=== PATIENT | male | born 1940 | race Caucasian/White ===

== ENCOUNTER 2016-11-25 15:05 | Inpatient (IN) | payer OTHER, MEDICARE ==
[~2016-11-25] VITALS: Ht 177.8 cm; Wt 79.4 kg
--- NOTE | 2016-11-25 15:09 | ED NEURO DEFICIT/STROKE ---
History of Present Illness General Chief Complaint: General Adult Stated Complaint: SENT BY [facility] FOR EVAL S/P HEAD CT SCAN Source: patient, family Exam Limitations: no limitations Vital Signs & Intake/Output Vital Signs & Intake/Output Vital Signs Date Time Temp Pulse Resp B/P B/P Pulse O2 O2 Flow FiO2 Mean Ox Delivery Rate 11/25 2105 98.7 65 18 140/64 96 Room Air 11/25 1841 98.0 78 18 146/80 97 Room Air 11/25 1733 97.1 64 18 150/78 100 11/25 1513 63 15 154/72 100 Room Air Room Air Allergies Coded Allergies: Penicillins (UNKNOWN 11/25/16) Reconcile Medications Amiodarone HCl 200 MG TABLET 1 TAB PO DAILY HEART (Reported) Aspirin (Ecotrin*) 81 MG TABLET.DR 1 TAB PO DAILY HEART/BLOOD (Reported) Carvedilol 6.25 MG TABLET 1 TAB PO BID HEART/BP (Reported) Doxycycline Hyclate 100 MG TABLET 1 TAB PO BID ANTIBIOTIC (Reported) Duloxetine HCl 60 MG CAPSULE.DR 1 CAP PO DAILY NERVE PAIN (Reported) Dutasteride (Avodart) 0.5 MG CAPSULE 1 CAP PO DAILY (Reported) Fluticasone Propionate 50 MCG/ACTUATION SPRAY.SUSP 2 SPRAY NASB DAILY ALLERGIES (Reported) Lisinopril 5 MG TABLET 1 TAB PO DAILY BP (Reported) Multivitamin (Multi-Day Vitamins) 1 EACH TABLET 1 TAB PO DAILY SUPPLEMENT ( Reported) Omeprazole 20 MG CAPSULE.DR 1 CAP PO DAILY GI (Reported) Pravastatin Sodium 40 MG TABLET 1 TAB PO QPM CHOLESTEROL (Reported) Triage Nurses Notes Reviewed? yes Onset: Gradual Duration: week(s): (2) Timing: recent history Severity: mild, moderate Vision Problem? No Impaired Ability: difficult to walk Associated Symptoms: HEADACHES HPI: This is a very tavares 68-year-old gentleman with history of hypertension, high cholesterol who presents to the ER with his after being sent from [facility]. According to the on October 30 he was bit by a tick in his left arm. He was seen at an urgent care where they removed the tick. Since that time she states it is all gone "downhill". Patient has felt dizzy, he has had frontal headaches. He has felt off balance and is walked into a few lopez. Patient is followed but denies any significant head injury.. He is on a daily 81 mg aspirin however. Past History Travel History Traveled to [place] past 21 day No Medical History Any Pertinent Medical History? see below for history Cardiovascular: hypertension, hyperlipidemia, DYSRHYTHMIA Surgical History Surgical History: non-contributory Psychosocial History Tobacco Use: Quit >30 days ago ETOH Use: DAILY 2-3 GLASSES WINE Family History Hx Contributory? No Review of Systems Review of Systems Constitutional: Denies: chills, fever. EENTM: Reports: no symptoms. Respiratory: Denies: cough, short of breath. Cardiovascular: Denies: chest pain, palpitations, peripheral edema, syncope. GI: Denies: abdominal pain, nausea, vomiting. Genitourinary: Reports: no symptoms. Musculoskeletal: Denies: back pain. Skin: Reports: no symptoms. Neurological/Psychological: Reports: ataxia, headache. Denies: anxiety, numbness, tingling, weakness. Hematologic/Endocrine: Denies: bruising, bleeding, polyuria, polydipsia. Immunologic/Allergic: Denies: splenectomy. All Other Systems: Reviewed and Negative Physical Exam Physical Exam General Appearance: well developed/nourished, alert, awake Head: atraumatic, normal appearance Eyes: Bilateral: normal appearance, PERRL, EOMI. Ears, Nose, Throat: normal ENT inspection, moist mucous membrane, hearing grossly normal Neck: normal inspection, supple, full range of motion Respiratory: normal breath sounds, chest non-tender, no respiratory distress Cardiovascular: regular rate/rhythm Peripheral Pulses: 2+ radial (R), 2+ radial (L) Gastrointestinal: normal bowel sounds, soft, non-tender Extremities: evidence of injury Psychiatric: awake, alert, oriented x 3 Cranial Nerves: normal hearing, normal speech, PERRL Coordination/Gait: normal finger to nose Core Measures CVA/TIA Diagnosis: Yes NIH Stroke Scale: Total 1 Date Last Known Well: 10/30/16 Neurological S/S of CVA: Dizziness Severe Sepsis Present: No Septic Shock Present: No Bedside Dysphagia Screen Bedside Swallow Eval Done: Yes Result of Evaluation: Pass Progress Differential Diagnosis: intracranial Hem., intracranial mass/tumor, stroke, PAF Plan of Care: Orders Procedure Date/time Status Nothing by Mouth 11/26 B Active TROPONIN LEVEL 11/26 0600 Active EKG 11/26 0600 Active Nothing by Mouth 11/25 D Complete TROPONIN LEVEL 11/25 2200 Active EKG 11/25 2200 Active Vital Signs 11/25 2105 Complete Teach/Educate 11/25 2104 Active Pain Treatment and Response 11/25 2104 Active Nutritional Intake, Monitor 11/25 2104 Active Isolation 11/25 2104 Active Intake & Output 11/25 210 Active Patient Care Conference 11/25 2104 Active Activity/Ambulation 11/25 210 Active Misc Message 11/25 195 Active ED Holding Orders 11/25 1959 Active SWALLOW EVALUATION 11/25 1835 Active MISTAKE 11/25 1835 Active GLYCOSYLATED HGB 11/25 1835 Active CBC WITHOUT DIFFERENTIAL 11/25 1835 Active BASIC ELECTROLYTES PLUS BUN&CR 11/25 1835 Active ECHOCARDIOGRAM 11/25 1835 Active LACTIC ACID 11/25 1810 Active Pathway - chart 11/25 1722 Active House Staff 11/25 1722 Active ED Holding Orders 11/25 1722 Active Admit to inpatient 11/25 1722 Active Patient Data 11/25 1722 Active Vital Signs 11/25 1722 Active Code Status 11/25 1722 Complete Code Status 11/25 1722 Active [id number] DOPPLER 11/25 1704 Active THYROID STIMULATING HORMONE 11/25 1530 Complete FOLIC ACID 11/25 1530 Complete VITAMIN B12 11/25 1530 Complete Add-on Test (ER Only) 11/25 1522 Active LYME TITRE 11/25 1522 Active TROPONIN LEVEL 11/25 1510 Complete PARTIAL THROMBOPLASTIN TIME 11/25 1510 Complete PROTHROMBIN TIME 11/25 1510 Complete LACTIC ACID 11/25 1510 Complete COMPREHENSIVE METABOLIC PANEL 11/25 1510 Complete CBC WITHOUT DIFFERENTIAL 11/25 1510 Complete EKG 11/25 1510 Active TYPE & SCREEN (NOT X-MATCH) 11/25 1510 Complete Lab Add-on Test 11/25 UNK Active VTE Mechanical Prophylaxis 11/25 UNK Active Telemetry/Client Technical Support Associate 11/25 UNK Active NIH Stroke Scale 11/25 UNK Active Current Medications Sig/Guzman Start time Last Medication Dose Stop Time Status Admin Atorvastatin Calcium 40 MG 1700 11/26 1700 AC (Lipitor) Pravastatin Sodium 40 MG 1700 11/26 1700 CAN (Pravachol) Amiodarone HCl 200 MG DAILY 11/26 1000 AC (Cordarone) Aspirin Buffered 81 MG DAILY 11/26 1000 AC (Ecotrin) Duloxetine HCl 60 MG DAILY 06/13 1000 AC (Cymbalta) Enoxaparin Sodium 40 MG DAILY 11/26 1000 AC (Lovenox) Omeprazole 20 MG DAILY 11/26 1000 AC (Prilosec) Tamsulosin HCl 0.4 MG DAILY 11/26 1000 AC (Flomax) Carvedilol 6.25 MG BID 11/25 2200 AC (Coreg) Doxycycline Hyclate 100 MG BID 11/25 2200 AC (Vibramycin) Laboratory Tests 11/25/16 1530: Anion Gap 9, Estimated GFR > 60, BUN/Creatinine Ratio 17.8, Glucose 80, Lactic Acid 1.7, Calcium 9.7, Total Bilirubin 1.0, AST 23, ALT 44, Alkaline Phosphatase 48, Troponin I < 0.01, Total Protein 7.0, Albumin 3.9, Globulin 3.1, Albumin/ Globulin Ratio 1.3, Vitamin B12 560, Folate 17.4, TSH 1.660, PT 12.0, INR 1.14, APTT 30, CBC w Diff NO MAN DIFF REQ, RBC 4.76, MCV 95.1 H, MCH 32.0 H, RDW 13.3, MPV 9.3, Gran % 57.6, Lymphocytes % 31.5, Monocytes % 8.5, Eosinophils % 1.4, Basophils % 1.0, Absolute Granulocytes 3.9, Absolute Lymphocytes 2.2, Absolute Monocytes 0.6, Absolute Eosinophils 0.1, Absolute Basophils 0.1, PUBS MCHC 33.6, Lyme Disease Antibody Pending Diagnostic Imaging: Viewed by Me: Radiology Read, CT Scan. Discussed w/RAD: Radiology Read, CT Scan. Radiology Impression: PATIENT: NAMAN MUÑOZ PRESENT AGE: 76 PATIENT ACCOUNT NO: [id number] : 38 LOCATION: [facility] ORDERING PHYSICIAN: BAL ISAACS MD SERVICE DATE: 11/25/16 EXAM TYPE: CAT - CT HEAD WO IV CONTRAST EXAMINATION: CT HEAD WITHOUT CONTRAST CLINICAL INFORMATION: Disorientation COMPARISON: None TECHNIQUE: Contiguous axial imaging was performed from the skull base to vertex without intravenous administration of contrast. DLP: 636 mGy-cm FINDINGS: There is loss of the brooks- white differentiation in the left occipital/posterior temporal lobe with regional sulcal effacement as well as high density in a gyriform configuration. There is mild mass effect on the atrium and occipital horn of the left lateral ventricle. Otherwise there is moderate generalized prominence of the ventricles, sulci, and extra-axial CSF spaces. Minor hypoattenuation in the periventricular regions. No shift of the normally midline structures. No additional site of evolving territorial infarct. No acute osseous abnormalities. The paranasal sinuses, upper nasal cavity and upper nasopharynx are clear. The mastoid air cells and middle ear cavities are clear. There is moderate degenerative change of the temporomandibular joints. No acute soft tissue abnormalities. There have been bilateral ocular lens extractions. The patient is edentulous. Upper cervical spondylosis is visualized with the suggestion of a compression deformity involving C3, age indeterminate. 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 Gyriform high density in this region is compatible with petechial hemorrhage. Mild regional mass effect. Background of moderate generalized volume loss and mild chronic microangiopathy. This critical result was communicated with Dr. Isaacs at 2:40PM on 11/25/2016 and the content and urgency was understood at the time of direct communication. The plan is for the patient to be taken by his to the emergency department. DICTATED BY: MELISSA JOHNSON MD DATE/TIME DICTATED:11/25/161428 IRONER:SAMEERA DATE/TIME TRANSCRIBED:11/25/161428 CONFIDENTIAL, DO NOT COPY WITHOUT APPROPRIATE AUTHORIZATION. <Electronically signed in Other Vendor System> SIGNED BY: MELISSA JOHNSON MD 11/25/16 1441 CXR Impression: PATIENT: NAMAN MUÑOZ PRESENT AGE: 76 PATIENT ACCOUNT NO: [id number] : 38 LOCATION: [facility] ORDERING PHYSICIAN: BAL ISAACS MD SERVICE DATE: 11/25/166166 EXAM TYPE: RAD - XRY-CHEST XRAY, PA AND LATERAL EXAMINATION: XR CHEST CLINICAL INFORMATION: Cough and shortness of breath COMPARISON: Chest CT from 08/06/2013 TECHNIQUE: 2 views of the chest were obtained. FINDINGS: The cardiomediastinal silhouette is unchanged with mild unfolding of the thoracic aorta. The lungs appear clear and slightly hyperinflated. The small pulmonary nodules and calcified granulomata seen on the prior chest CT are not resolved radiographically. No consolidation, pulmonary edema, pleural effusion, or pneumothorax. There is mild multilevel degenerative change of the spine without evidence of acute osseous abnormality. IMPRESSION: No acute abnormality. DICTATED BY: MELISSA JOHNSON MD DATE/TIME DICTATED:11/25/161448 IRONER:SAMEERA DATE/TIME TRANSCRIBED:1448 CONFIDENTIAL, DO NOT COPY WITHOUT APPROPRIATE AUTHORIZATION. < Electronically signed in Other Vendor System> SIGNED BY: MELISSA JOHNSON MD 11/25/16 1454 Initial ED EKG: NSR Comments: PATIENT: NAMAN MUÑOZ PRESENT AGE: 76 PATIENT ACCOUNT NO: [id number] : 38 LOCATION: 1NO ORDERING PHYSICIAN: DEBORA PETTY MD SERVICE DATE: 11/25/16 EXAM TYPE: MRI - MRA-HEAD EXAMINATION: MRA [place] OF [place] CLINICAL INFORMATION: CVA COMPARISON: CT head 11/25/2016. MRI of head 11/25/2016. TECHNIQUE: A 1.5 Fabiola magnet used. 3-D [id number] multi-slab imaging obtained through the head. Post processing 3-D MIP images provided from scanner with postprocessing by the solid waste technician. No IV contrast used. FINDINGS: There is patent vascular flow in the right and left internal carotid arteries. There is irregularity of the carotid vessels at the carotid siphon consistent with the atherosclerotic vascular wall calcifications seen on CT head 11/25/2016. There is vascular flow seen in the right and left internal carotid arteries with normal vascular flow in the anterior and middle cerebral artery distribution. Vertebral arteries and basilar artery appears normal. Normal vascular flow seen in the posterior cerebral arteries. No occlusion or aneurysms. IMPRESSION: No occlusion or aneurysm of [place] of [place]. There is atherosclerotic changes of the internal carotid arteries at the carotid artery siphon bilaterally. DICTATED BY: JUN DENISE MD DATE/TIME DICTATED:11/25/162025 IRONER:SAMEERA DATE/TIME TRANSCRIBED:11/25/162025 CONFIDENTIAL, DO NOT COPY WITHOUT APPROPRIATE AUTHORIZATION. <Electronically signed in Other Vendor System> SIGNED BY: JUN DENISE MD 11/25/162047 PATIENT: NAMAN MUÑOZ PRESENT AGE: 76 PATIENT ACCOUNT NO: [id number] : 38 LOCATION: 1NO ORDERING PHYSICIAN: JUNG WALLER MD SERVICE DATE: 11/25/16 EXAM TYPE: MRI - MRI-HEAD W & W/O GABRIELA EXAMINATION: MR BRAIN WITHOUT AND WITH CONTRAST CLINICAL INFORMATION: Findings of left SOFTWARE TECHNICAL LEAD territory infarct on CAT scan today. Disorientation. COMPARISON: CT head today. TECHNIQUE: MRI of the brain was obtained using routine sequences before and after the intravenous administration of 20 mL of OptiMARK. FINDINGS: In the area of the left SOFTWARE TECHNICAL LEAD, left medial occipital parietal lobe, there is evidence for an acute infarct. There is edema. There is restricted diffusion. Cortical brooks matter has enhancement postcontrast. There is susceptibility changes on gradient recall imaging and this area consistent with small petechial hemorrhage. These findings correlate to the abnormal findings seen on CT of head today. There is background atrophy with prominence of the ventricles and sulci and periventricular white matter chronic small vessel ischemic changes. The paranasal sinuses are well aerated. IMPRESSION: Left SOFTWARE TECHNICAL LEAD territory infarct with evidence of hemorrhage. DICTATED BY: JUN DENISE MD DATE/TIME DICTATED:11/25/162017 IRONER:SAMEERA DATE/TIME TRANSCRIBED:11/25/162017 CONFIDENTIAL, DO NOT COPY WITHOUT APPROPRIATE AUTHORIZATION. <Electronically signed in Other Vendor System> SIGNED BY: JUN DENISE MD 11/25/162102 Departure Departure Time of Disposition: 1650 Disposition: STILL A PATIENT Condition: Stable Clinical Impression Primary Impression: CVA (cerebral vascular accident) Referrals: BAL ISAACS MD (PCP/Family) Departure Forms: Customer Survey General Discharge Information Admission Note Spoke With: BHARAT MUNGUIA MD Documentation of Exam: Documentation of any treatments & extenuating circumstances including Concerns Regarding Discharge (functional status, medication knowledge or non-compliance, living conditions, etc.) that warrant an admission rather than observation: [ TELE MONITOR, MRI HEAD, CAROTID ULTRASOUND, CARDIOLOGY EVALUATION AND RECORDS, CONSIDER ANTICOAGULATION]
--- NOTE | 2016-11-25 15:13 | NUR ---
PT SENT TO ED BY DR. ISAACS FOR HEAD CT RESULTS. PT SEEN AT [facility] TODAY FOR CHEST XRAY AND HEAD CT FOR ?STROKE FOR S/S OF WALKING SIDEWAYS, HEADACHE, FREQUENT FALLS, WEAKNESS. PT RECENTLY BIT BY A TICK WHICH IS WHAT AND PT HAVE BEEN RELATED SYMPTOMS TO. VSS ON ARRIVAL.
--- NOTE | 2016-11-25 15:13 | NUR ---
DR. PETTY AT BEDSIDE.
[2016-11-25] MEDS ORDERED: MULTI-DAY VITA1 EACH PO (15:26)
[2016-11-25] MEDS ORDERED: ASPIRIN EC81 M1 PO (15:26)
[2016-11-25] MEDS ORDERED: CARVEDILOL6.25 M1 PO (15:26)
[2016-11-25] MEDS ORDERED: OMEPRAZOLE20 M2 PO (15:26)
[2016-11-25] MEDS ORDERED: LISINOPRIL5 M1 PO (15:26)
[2016-11-25] MEDS ORDERED: PRAVASTATIN SOD40 M2 PO (15:27)
[2016-11-25] MEDS ORDERED: AMIODARONE HCL200 M1 PO (15:27)
[2016-11-25] MEDS ORDERED: DULOXETINE HCL30 MG PO (15:27)
[2016-11-25] MEDS ORDERED: AVODART0.5 M1 PO (15:27)
[2016-11-25] MEDS ORDERED: FLUTICASONE PRO16 GM NASB (15:29)
[2016-11-25] MEDS ORDERED: DOXYCYCLINE HY100 M4 PO (15:29)
[2016-11-25] MEDS ORDERED: DULOXETINE HCL60 MG PO (15:30)
--- NOTE | 2016-11-25 15:44 | NUR ---
IV MED LOCK EST RIGHT F/A 20 BLOOD WORK SENT EKG DONE
[2016-11-25 15:55] LABS: ABSOLUTE BASOPHIL COUNT 0.1 /CUMM (0.0-0.2); ABSOLUTE EOSINOPHIL COUNT 0.1 /CUMM (0.0-0.7); ABSOLUTE GRANULOCYTE CT 3.9 /CUMM (1.4-6.5); ABSOLUTE LYMPH COUNT 2.2 /CUMM (1.2-3.4); ABSOLUTE MONOCYTE COUNT 0.6 /CUMM (0.10-0.60); EOSINOPHIL % 1.4 % (0-5); GRANULOCYTE % 57.6 % (42.2-75.2); HEMATOCRIT 45.3 % (42-52); MEAN CORPUSCULAR HGB CONC 33.6 G/DL (33.0-37.0); MEAN CORPUSCULAR VOLUME 95.1 FL (80.0-94.0); MEAN PLATELET VOLUME 9.3 FL (7.4-10.4); PLATELET COUNT 165 /CUMM (130-400); RBC DISTRIBUTION WIDTH 13.3 % (11.5-14.5); RED BLOOD CELL CT 4.76 /CUMM (4.70-6.10); WHITE BLOOD CELL COUNT 6.8 /CUMM (4.8-10.8)
[2016-11-25 16:16] LABS: PTT 30 SEC (25-37)
--- NOTE | 2016-11-25 17:21 | History & Physical ---
TORY OBREGON,MALCOLM 11/25/16 0100: General Information and HPI MD Statement: I have seen and personally examined NAMAN MUÑOZ and documented this H&P. The patient is a 76 year old M who presented with a patient stated chief complaint of []. Source of Information: family Exam Limitations: no limitations History of Present Illness: Patient is a 68-year-old male with significant Past medical history of hypertension, hyperlipidemia, cardiomyopathy, presented with history of confusion since last 1 year, history of tick bite on the October 30, history of recurrent fall after that. Most of the history is taken from the .According to the , he is confused since last 1 year and following You Isaacs MD for its workup. He had history of tick bite, he went to urgent care where the tick was removed.Later he started having fever, chills, cold sweats, headaches. He was unsteady on her feet and had fall in the bathroom on November 01. For which he went to see Dr. Isaacs and he was given a tablet doxycycline for it. After that, he had again fall on November 08. He started taking his doxycycline around . After that, and now he is not feeling chills, night sweats. He is complaining of a headache, especially on the left side of the head, and today he was unable to find handle of car to open the door. 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 Denies for any history of arthritis, rashes, trauma, possible history of Lyme. Discussed with Dr. Martinez. He told that the patient had history of nonsustained VT, along with cardiomyopathy. He has very poor ejection fraction and advised for defibrillator, but he refuses for it. Personal history -he retired 27 years ago, he quit smoking 6 years ago, he was using an half pack per day for around 50 years, he uses alcohol socially. Allergies/Medications Allergies: Coded Allergies: Penicillins (UNKNOWN 11/25/16) Home Med list Amiodarone HCl 200 MG TABLET 1 TAB PO DAILY HEART (Reported) Aspirin (Ecotrin*) 81 MG TABLET. 1 TAB PO DAILY HEART/BLOOD (Reported) Carvedilol 6.25 MG TABLET 1 TAB PO BID HEART/BP (Reported) Doxycycline Hyclate 100 MG TABLET 1 TAB PO BID ANTIBIOTIC (Reported) Duloxetine HCl 60 MG CAPSULE.DR 1 CAP PO DAILY NERVE PAIN (Reported) Dutasteride (Avodart) 0.5 MG CAPSULE 1 CAP PO DAILY (Reported) Fluticasone Propionate 50 MCG/ACTUATION SPRAY.SUSP 2 SPRAY NASB DAILY ALLERGIES (Reported) Lisinopril 5 MG TABLET 1 TAB PO DAILY BP (Reported) Multivitamin (Multi-Day Vitamins) 1 EACH TABLET 1 TAB PO DAILY SUPPLEMENT ( Reported) Omeprazole 20 MG CAPSULE.DR 1 CAP PO DAILY GI (Reported) Pravastatin Sodium 40 MG TABLET 1 TAB PO QPM CHOLESTEROL (Reported) Past History Travel History Traveled to [place] past 21 day No Medical History EENT: [facility] Cardiovascular: hypertension, hyperlipidemia, DYSRHYTHMIA Past Family/Social History Psychosocial History ETOH Use: DAILY 2-3 GLASSES WINE Review of Systems Review of Systems Constitutional: Reports: no symptoms, weakness. Cardiovascular: Reports: chest pain, palpitations. Respiratory: Reports: cough, short of breath. Genitourinary: Reports: dysuria. Neurological/Psychological: Reports: cognitive dysfunction, confusion, weakness. Exam & Diagnostic Data Last 24 Hrs of Vital Signs/I&O Vital Signs Date Time Temp Pulse Resp B/P B/P Pulse O2 O2 Flow FiO2 Mean Ox Delivery Rate 11/25 1841 98.0 78 18 146/80 97 Room Air 11/25 1733 97.1 64 18 150/78 100 / 1513 63 15 154/72 100 Room Air Room Air Intake & Output 11/25 1600 /12 0800 11/25 0000 Intake Total Output Total Balance Patient 79.832 kg Weight Weight Reported by Patient Measurement Method Physical Exam General Appearance Alert, Oriented X3, Cooperative Skin No Rashes Cardiovascular Normal S1, Normal S2 Lungs Clear to Auscultation, Normal Air Movement Neurological Normal Speech, Strength at 5/5 X4 Ext, Normal Tone, Sensation Intact, Cranial Nerves 3-12 NL, Reflexes 2+, he sways on left side, field of vision is normal Extremities No Clubbing, No Cyanosis, No Edema Vascular Normal Pulses, Pulses Symmetrical Assessment/Plan Assessment: Patient is a 68-year-old male with significant Past medical history of hypertension, hyperlipidemia, cardiomyopathy, presented with history of confusion since last 1 year, history of tick bite on the October 30, history of recurrent fall after that. 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 We'll follow the recommendation * We will follow MRI of the brain, carotid Doppler, echocardiogram * Will start patient on high-dose statin, aspirin, continue lisinopril * Strict intake output charting * PT/OT consult Cardiomyopathy with history of nonsustained VT, poor ejection fraction * we'll keep the patient into telemetry floor * We will regularly monitor EKG * We'll continue tab amiodarone * We will place cardiology consult and follow recommendations Hypertension * We will continue tablet carvedilol 6.25 BID Diet-nothing by mouth, pending swallow evaluation DVT prophylaxis -ALP S CODE STATUS-full code As Ranked By This Provider Problem List: 1. Cerebral infarction involving posterior cerebral artery 2. Hypertension 3. Hyperlipidemia 4. Cardiomyopathy Core Measures/Miscellaneous Acute Coronary Syndrome ACS Diagnosis: No Cerebrovascular Accident CVA/TIA Diagnosis: Yes NIH Stroke Scale: Total 0 Date Last Known Well: 11/25/16 Time Last Known Well: 2023 Neurological S/S of CVA: Weakness of Limb Symptom Start Date: 10/30/16 Bedside Swallow Eval Done: No Antithrombotic: No AFIB: No LDL Assessed Within 24 Hours: No Currently on Statin: Yes Rehab Needs Assessed: Medical Eval for Rehab PT Consult Ordered: Yes Congestive Heart Failure CHF Diagnosis: No VTE (View Protocol) VTE Risk Factors: Age > 40 No [facility] VTE prophylaxis d/t: No contraindications No VTE Pharm Prophylaxis d/t: Hemorrhagic stroke VTE Diagnosis: No VTE Type: NONE VTE Confirmed by (Test): NONE Sepsis (View Protocol) Severe Sepsis Present: No Septic Shock Septic Shock Present: No Miscellaneous Documentation Attending Case Discussed With: BHARAT MUNGUIA MD Primary Care Physician: BAL ISAACS MD Patient sees these Specialists not applicable Level of Patient Care: Telemetry JUNG WALLER 11/25/16 1824: Past History Surgical History Surgical History: none Resident Review Statement Resident Statement: examined this patient, discussed with chemist intern Other Findings: Patient is a 76-year-old male with past medical history of nonsustained V. tach( refused defibrillator in the past), hypertension, hyperlipidemia, BPH who was brought in the ER by from [facility] after a CAT scan which revealed MACHINIST 2ND SHIFT infarct and petechial hemorrhage. Family reports that patient had a tick bite in his left arm on October 30. They went to the urgent care clinic where the tick was removed and he received 2 pills for Doxycycline. No rash was noted at that time. Post-incident the patient has been very confused, had fevers and chills, cold sweats, gait imbalance and fatigued. He had 2 witnessed falls on 10/30/16 in his bathroom floor and another on 11/08/16 during a family picnic. Both the falls were witnessed by his family is. There was no loss of consciousness, seizure-like activity, bowel or bladder incontinence. Family feels that his gait imbalance resulted in the mechanical falls. Post-the fall, there has been known neurological deficits per the family. He does have mild dementia at baseline, however his change of mental status since the day of tick bite was very acute and apparent to the family. His primary care physician You Isaacs MD started him on doxycycline at around October 182016 for persistence of his symptoms. Patient has been taking doxycycline regularly since that day with slight improvement in his subjective symptoms of fever, chills, cold sweats and fatigue. reports that he has 4 more pills left. He was never tested for Lyme titer. No history of Lyme's disease in the past. He was sent for a CAT scan today at [facility] by You Isaacs MD which revealed evolving left MACHINIST 2ND SHIFT territory infarct and petechial hemorrhage in the area. There was some mild regional mass effect. Of note, patient has history of nonsustained V. tach and has been started on amiodarone by Dr. Wilson. He has refused defibrillator in the past. No history of A. fib/flutter. Patient was never started on anticoagulation as per family. His last echocardiogram from October 2016 showed an ejection fraction of 35%, with LVH and RV pressures of 33 mm. In the ED upon arrival he had a normal temperature, pulse 63, respirations 15, blood pressure 154/72, saturating 100% on room air. Labs were essentially normal except potassium of 5.1. Troponin was negative. EKG showed sinus rhythm, first-degree heart block with a MT interval of 0.26(not present on previous EKG), QTC 452, mild ST depression in the anterolateral leads Head CT showed an evolving left MACHINIST 2ND SHIFT territory infarct. Mild regional mass effect. Gyrifrom high density compatible with petechial hemorrhage in the same region. Chest x-ray showed no acute anomaly Physical examination Gen.: Awake, alert and oriented 3, no acute distress. HEENT: PERRLA, EOMI, visual vallejo grossly intact, tongue midline, no facial droop CVS :S1 and S2 heard, no murmurs Chest: Bilateral breath sounds heard, no adventitious sounds\ Neurological: Cranial nerves intact, power 5 x 5 in all 4 extremities and no cerebellar signs, Romberg positive, reflexes intact Extremities: No edema Assessment and plan * Altered mental status, confusion post Tick bite (10/30) * Status post Mechanical falls x 2( 11/01 and 11/08) * Evolving left MACHINIST 2ND SHIFT territory infarct on CT. Mild regional mass effect. Petechial hemorrhage in the same region. * ? Lyme's disease(on doxycycline, 4 more days of antibiotics) * New Heart block on EKG * Nonsustained V. tach's, on amiodarone(refused defibrillator) * Hypertension * Hyperlipidemia * BPH Plan: * Admit patient to telemetry * Every 2 hours neuro checks * Vitals per protocol * Orthostatic vitals * Closely monitor on telemetry * 3 sets of troponins and EKG to rule out ACS * MRI brain to better evaluate the infarct/hemorrhage * Continue aspirin and statin(patient took the a.m. dose already) * Carotid ultrasound to rule out stenosis * Echocardiogram ordered * Neurology consult appreciated * Continue amiodarone and carvedilol, patient's home meds * Cardiology consult with Dr. Mansfield(will get records from Dr. Woodall's office) * Continue doxycycline for the remaining 4 days of treatment of Lyme * Lyme titer pending * ID consult for help with the treatment of possible Lyme * DVT prophylaxis subcutaneous Lovenox * Nothing by mouth for now * Formal swallow eval in a.m. * Full code(please discuss the CODE STATUS in detail with family. Patient does not have a living will and family is currently confused about his CODE STATUS.) TERRENCE MORATEE 11/25/162045: Attending MD Review Statement Attending Statement Attending MD Statement: examined this patient, discuss w/resident/PA/BOARD OPERATOR, agreed w/resident/PA/BOARD OPERATOR, discussed with family, reviewed EMR data (avail), reviewed images, amended to note Attending Assessment/Plan: CC: Abnormal CT scan PMH: HTN, HLD, BPH, V. tach, HFrEF (EF 35%) History is obtain from patient's family's patient and . According to her patient had been having worsening of confusion since long time, attributes to possible dementia but since October 30 she had noticed some changes after tick bite on left arm. Tick was removed at urgent care. And patient was described probably one-time dose of doxycycline. Followed by the tick bite a shunt was persistently complaining of feeling hot, sweating, fever, chills, fatigue so they visited PCP who prescribed doxycycline for approximately 21 days, after starting treatment patient symptomatically transiently improved. But it was followed by abnormal gait, swaying to one side, 2 falls (which appeared to be mechanical), so they followed up again with PCP where CT scan of her head was ordered today which showed posterior circulation infarct so he shouldn't was sent to ER. Patient denies any headache, blurred vision, double vision, decreased vision, no presyncopal or loss of consciousness. He complains of bilateral lower extremity tingling and burning in feet on lateral aspect but otherwise complete ROS is unremarkable. Patient was offered ablation and ICD in the past given his heart failure and cardiac arrhythmias but patient refused it so he was started on amiodarone. Vitals: Afebrile, pulse 63, RR 15, blood pressure 154/72, saturating well on room air On exam: Hard of hearing A O 3, cooperative, no acute distress, neck supple, JVD normal, no lymphadenopathy, mucosa moist, strength reflexes and tone is normal in all extremities, cranial nerves intact, unsteady gait, Romberg's positive swaying to back, no dependent edema, no obvious skin rashes or inflammation CVS: S1-S2, RRR. RS: Clear to auscultate bilaterally. Abdomen: Soft , NT, ND, bowel sounds present. Labs: CBC, BMP, LFT, troponin unremarkable. CT head: Findings compatible with an evolving left MACHINIST 2ND SHIFT territory infarct. Gyriform high density in this region is compatible with petechial hemorrhage. Mild regional mass effect. Background of moderate generalized volume loss and mild chronic microangiopathy. CXR: No acute abnormality EKG: First-degree AV block A and P: He 76-year-old male with multiple comorbidities including hypertension, ex- smoker, cardiomyopathy with decreased ejection fraction and non sustainedV. tach presented with at least 2 week duration of a gait abnormality and falls and after CT scan was found to be positive for evolving left MACHINIST 2ND SHIFT territory infarct with petechial hemorrage. As patient had been getting gradual symptoms since last 2 week and exact duration of stroke is unknown. On focal examination patient had unsteady gait, but no focal deficits for observed on extremities or cranial nerves. EKG significant for first-degree AV block. + Left MACHINIST 2ND SHIFT territory infarct with ? Potential hemorrhage and regional mass effect + Tingling and burning in feet in lateral aspect + Recent tick bite + First-degree heart block + History of HTN, HLD, BPH, V. tach, HFrEF (EF 35%) - Admit to telemetry for further evaluation of stroke - Continuous telemetry - Strict I's and O's - Continue aspirin, today one-time dose of 325 aspirin - Continue atorvastatin 40 mg discontinue pravastatin - Continue home doses of amiodarone, Coreg, Cymbalta, lisinopril - Neurochecks every 4 hours - Follow up with carotid Doppler, MRI brain - Trend EKG and troponin - Transthoracic echocardiogram - Complete the prescribed dose of doxycycline - check B 12 level and Vit D level - OT PT evaluation - Bedside swallow evaluation - DVT prophylaxis with Lovenox. The - Neurology consult, cardiology consult
--- NOTE | 2016-11-25 18:00 | NUR ---
1730 PATIENT WAS SENT TO U/S AND MRI
--- NOTE | 2016-11-25 18:40 | NUR ---
RETURNED FROM RADIOLOGY DEPT PATIENT ALERT ORIENTED X 3 MOVES ALL EXT SKIN WARM DRY OFFERS NO COMPLAINTS
--- NOTE | 2016-11-25 19:22 | NUR ---
PT GOING TO ROOM 189-1
--- NOTE | 2016-11-25 20:00 | NUR ---
REPORT GIVEN TO FLOOR PATIENT REMAINS STABLE SKIN WARM DRY ALERT ORIETED
--- NOTE | 2016-11-25 20:48 | MRI REPORT ---
EXAMINATION: MRA [facility] [place] [facility] [place] CLINICAL INFORMATION: CVA COMPARISON: CT head 11/25/2016. MRI of head 11/25/2016. TECHNIQUE: A 1.5 Fabiola magnet used. 3-D [id number] multi-slab imaging obtained through the head. Post processing 3-D MIP images provided from scanner with postprocessing by the dictaphone technician. No IV contrast used. FINDINGS: There is patent vascular flow in the right and left internal carotid arteries. There is irregularity of the carotid vessels at the carotid siphon consistent with the atherosclerotic vascular wall calcifications seen on CT head 11/25/2016. There is vascular flow seen in the right and left internal carotid arteries with normal vascular flow in the anterior and middle cerebral artery distribution. Vertebral arteries and basilar artery appears normal. Normal vascular flow seen in the posterior cerebral arteries. No occlusion or aneurysms. IMPRESSION: No occlusion or aneurysm of [place]. There is atherosclerotic changes of the internal carotid arteries at the carotid artery siphon bilaterally.
--- NOTE | 2016-11-25 20:48 | Admission Certification ---
Admission Certification Certification Statement - As attending physician, I certify that at the time of - admission, based on clinical presentation, severity of - symptoms, need for further diagnostic testing and - therapeutic interventions, and risk of adverse outcomes - without in-hospital treatment, in my clinical assessment, - this patient requires an acute hospital stay for a minimum - of two nights or longer. I have also considered psychsocial - factors such as support system, advanced age, financial - issues, cognitive issues, and failed out-patient treatments, - past re-admission history, safety of patient, and lack of - compliance as applicable. Specific rationale supporting this admission is: Left GOLD AND SILVER ASSAYER territory infarct
--- NOTE | 2016-11-25 21:03 | MRI REPORT ---
EXAMINATION: MR BRAIN WITHOUT AND WITH CONTRAST CLINICAL INFORMATION: Findings of left MANAGER OF PROGRAM territory infarct on CAT scan today. Disorientation. COMPARISON: CT head today. TECHNIQUE: MRI of the brain was obtained using routine sequences before and after the intravenous administration of 20 mL of OptiMARK. FINDINGS: In the area of the left MANAGER OF PROGRAM, left medial occipital parietal lobe, there is evidence for an acute infarct. There is edema. There is restricted diffusion. Cortical brooks matter has enhancement postcontrast. There is susceptibility changes on gradient recall imaging and this area consistent with small petechial hemorrhage. These findings correlate to the abnormal findings seen on CT of head today. There is background atrophy with prominence of the ventricles and sulci and periventricular white matter chronic small vessel ischemic changes. The paranasal sinuses are well aerated. IMPRESSION: Left MANAGER OF PROGRAM territory infarct with evidence of hemorrhage.
[2016-11-25 21:06] VITALS: BP 140/64
--- NOTE | 2016-11-25 22:00 | NUR ---
NURSING NOTE; PT ADMITTED TO FLOOR. VSS. NIH SCORE 0. EQUAL STRENGTH. A+OX3. NSR 60'S. CLEARED BY MD TO TAKE PO MEDS. ORDERED FOR SWALLOW EVAL IN AM. PT WITHOUT COMPLAINTS.
[2016-11-25 23:27] LABS: ABSOLUTE BASOPHIL COUNT 0.1 /CUMM (0.0-0.2); ABSOLUTE EOSINOPHIL COUNT 0.1 /CUMM (0.0-0.7); ABSOLUTE GRANULOCYTE CT 3.3 /CUMM (1.4-6.5); ABSOLUTE LYMPH COUNT 2.3 /CUMM (1.2-3.4); ABSOLUTE MONOCYTE COUNT 0.6 /CUMM (0.10-0.60); BASOPHIL % 0.8 % (0.0-2.0); GRANULOCYTE % 52.3 % (42.2-75.2); MEAN CORPUSCULAR HGB 31.9 PG (27.0-31.0); MEAN CORPUSCULAR VOLUME 96.8 FL (80.0-94.0); MEAN PLATELET VOLUME 8.8 FL (7.4-10.4); PLATELET COUNT 145 /CUMM (130-400); RBC DISTRIBUTION WIDTH 13.4 % (11.5-14.5); RED BLOOD CELL CT 4.45 /CUMM (4.70-6.10); WHITE BLOOD CELL COUNT 6.4 /CUMM (4.8-10.8)
[2016-11-26 01:13] VITALS: BP 136/60
--- NOTE | 2016-11-26 07:55 | ULTRASOUND REPORT ---
EXAMINATION: DUPLEX BILATERAL CAROTID ULTRASOUND CLINICAL INFORMATION: Left COMPLETION MANAGER infarct. COMPARISON: None. TECHNIQUE: Duplex bilateral carotid US was performed using real-time ultrasound and Doppler techniques (integrating B-mode 2D vascular images, Doppler spectral analysis and color flow Doppler imaging). These techniques were utilized to interrogate the extracranial carotid and vertebral arteries bilaterally. The degree of stenosis is based off criteria similar to NASCET. FINDINGS: 1. On the right: Moderate amount of echogenic shadowing plaque is present at the carotid bifurcation but velocity measurements are normal and do not suggest a stenosis of greater than 50% diameter reduction in the right ICA. The vertebral artery is patent demonstrating antegrade flow. 2. On the left: Echogenic plaque is present at the carotid bifurcation but velocity measurements are normal and do not suggest a stenosis of greater than 50% diameter reduction in the left ICA. The vertebral artery is patent demonstrating antegrade flow. The external carotid arteries appear unremarkable. Subclavian artery waveforms are normal. IMPRESSION: Plaque is present in the internal carotid arteries but velocity measurements are normal and there is no evidence to suggest a hemodynamically significant stenosis of greater than 50% diameter reduction.
[2016-11-26 08:11] VITALS: BP 122/80
--- NOTE | 2016-11-26 08:28 | PN- Housestaff ---
Subjective Follow-up For: Left VULCANIZED FIBER UNIT OPERATOR infarct Complaints: no complaints Tele-Events Since Last Visit: episodes of non sustained VT Subjective: patient isseen and examined at the bed side. He was having no any active complains.On furtrher asking he told that he feels, bot of his legs are numb. Review of Systems Constitutional: Reports: no symptoms. Comments: Patient was complaining of numbness in both feet and feeling of cold on right side of the feet. On examination, pulse is 5 feet on the right foot. Both posterior tibial and dorsalis pedal. We advised to have an outpatient workup for PVD. Objective Last 24 Hrs of Vital Signs/I&O Vital Signs Date Time Temp Pulse Resp B/P B/P Pulse O2 O2 Flow FiO2 Mean Ox Delivery Rate 11/26 1530 97.9 61 16 122/74 97 Room Air 11/26 0931 53 122/80 11/26 0931 53 122/80 11/26 0931 53 122/80 11/26 0811 97.7 53 18 122/80 97 Room Air 11/26 0800 Room Air 11/26 0113 98.9 67 18 136/60 97 Room Air 11/25 2243 60 122/78 11/25 2106 98.7 65 18 140/64 96 Room Air 11/25 1841 98.0 78 18 146/80 97 Room Air 11/25 1733 97.1 64 18 150/78 100 Intake & Output 11/26 1600 11/26 0800 11/26 0000 Intake Total 960 120 400 Output Total 400 Balance 960 -280 400 Intake, Oral 960 120 400 Output, Urine 400 Patient 79.379 kg Weight Physical Exam General Appearance: Alert, Oriented X3, Cooperative, No Acute Distress Cardiovascular: Normal S1, Normal S2 Lungs: Clear to Auscultation, Normal Air Movement Abdomen: Soft, No Tenderness Neurological: Normal Speech, Strength at 5/5 X4 Ext, Normal Tone, Sensation Intact, Cranial Nerves 3-12 NL, Reflexes 2+ Extremities: No Clubbing, No Cyanosis, No Edema, decrease pulse on right foot, both tibial and dorsalis and posterior tibila Assessment/Plan Assessment: Patient is a 68-year-old male with significant Past medical history of hypertension, hyperlipidemia, cardiomyopathy, presented with history of confusion since last 1 year, history of tick bite on the October 30, history of recurrent fall after that. Vital signs at the time of admission-temperature 97.1, pulse 63, respiratory rate 18, blood pressure 150/76, SPO2 100% on room air Pertinent lab -MCV 95.1,K-5.1 Plan - Left VULCANIZED FIBER UNIT OPERATOR territory infarct - * Neuro check every 4 hourly * Keep head end of the bed elevated * Take all aspiration precautions * We will follow Neurology recommendation - advised aspirin and statins * MRI of the brain - Left VULCANIZED FIBER UNIT OPERATOR infarct, carotid Doppler - good flow with plaque in ICA, echocardiogram - will follow * Will continue high-dose statin, aspirin, continue lisinopril * Strict intake output charting * PT/OT consult ETOH withdrawl According to patient he drinks 3 glass/1/2 bottle/shots daily. * Advised to quit * We will follow CIWA protocol and give Ativan accordingly if needed. Cardiomyopathy with history of nonsustained VT, poor ejection fraction * we'll keep the patient into telemetry floor * We will regularly monitor EKG * We'll continue tab amiodarone * We will follow cardiology consult and follow recommendations Hypertension * We will continue tablet carvedilol 6.25 BID Diet-nothing by mouth, pending swallow evaluation DVT prophylaxis -ALP S CODE STATUS-full code Problem List: 1. Cardiomyopathy 2. Hyperlipidemia 3. Hypertension 4. Cerebral infarction involving posterior cerebral artery 5. CVA (cerebral vascular accident) Pain Ratin Pain Location: not applicable Pain Goal: Remain pain free Pain Plan: mild to modertae Tomorrow's Labs & Rationales: not required - stable DVT/Prophylaxis: mechanical, pharmacological
--- NOTE | 2016-11-26 13:34 | Cons- Neurology ---
General Information and HPI Consulting Request Date of Consult: 11/26/16 Requested By: BHARAT MUNGUIA MD History of Present Illness: 76-year-old male with history of mild confusion for approximately 1 year, a tick bite in late October resulting in some fevers and for which she was started on doxycycline by his PMD and a 1 day history of heightened confusion and bewilderment, apparently unable to find the door handle on his car. He was put into hospital where imaging of the brain was done, revealing an acute left BIBLE WORKER distribution infarct with small petechial hemorrhage within. He has no prior history of stroke. He is currently resting comfortably. Allergies/Medications Allergies: Coded Allergies: Penicillins (UNKNOWN 11/25/16) Home Med List: Amiodarone HCl 200 MG TABLET 1 TAB PO DAILY HEART (Reported) Aspirin (Ecotrin*) 81 MG TABLET.DR 1 TAB PO DAILY HEART/BLOOD (Reported) Carvedilol 6.25 MG TABLET 1 TAB PO BID HEART/BP (Reported) Doxycycline Hyclate 100 MG TABLET 1 TAB PO BID ANTIBIOTIC (Reported) Duloxetine HCl 60 MG CAPSULE.DR 1 CAP PO DAILY NERVE PAIN (Reported) Dutasteride (Avodart) 0.5 MG CAPSULE 1 CAP PO DAILY (Reported) Fluticasone Propionate 50 MCG/ACTUATION SPRAY.SUSP 2 SPRAY NASB DAILY ALLERGIES (Reported) Lisinopril 5 MG TABLET 1 TAB PO DAILY BP (Reported) Multivitamin (Multi-Day Vitamins) 1 EACH TABLET 1 TAB PO DAILY SUPPLEMENT ( Reported) Omeprazole 20 MG CAPSULE.DR 1 CAP PO DAILY GI (Reported) Pravastatin Sodium 40 MG TABLET 1 TAB PO QPM CHOLESTEROL (Reported) Review of Systems Review of Systems: Reported fevers, sweats, headache and mild confusion. He has had several falls. 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 Home Smoking Status: Former Smoker ETOH Use: DAILY 2-3 GLASSES WINE Exam & Diagnostic Data Vital Signs and I&O Vital Signs Date Time Temp Pulse Resp B/P B/P Pulse O2 O2 Flow FiO2 Mean Ox Delivery Rate 11/26 930 53 122/80 11/26 0931 53 122/80 11/26 0931 53 122/80 11/26 0811 97.7 53 18 122/80 97 Room Air 11/26 0800 Room Air 11/26 0113 98.9 67 18 136/60 97 Room Air 11/25 2243 60 122/78 11/25 2106 98.7 65 18 140/64 96 Room Air 11/25 1841 98.0 78 18 146/80 97 Room Air 11/25 1733 97.1 64 18 150/78 100 11/25 1513 63 15 154/72 100 Room Air Room Air Intake & Output 11/26 1600 11/26 0800 11/26 0000 Intake Total 120 400 Output Total 400 Balance -280 400 Intake, Oral 120 400 Output, Urine 400 Patient 175 lb Weight Pleasant elderly gentleman in no acute distress, fully awake and alert. He was oriented to person place and time. He knew the name of the current and prior presidents. For letter reversals and simple calculations were performed adequately. Speech was fluent. The head was normocephalic and atraumatic. Pupils were equal and reactive. Extraocular movements were full. There was a right superior altitudinal field defect to finger confrontation with double simultaneous stimulation. Facial strength and sensation was intact. He wore hearing aids. Tongue was midline. Motor examination showed no focal or lateralizing weakness. Deep tendon reflexes were symmetric. Plantar responses were flexor. Sensory examination was normal to light touch with double simultaneous stimulation. The gait was untested. MRA showed no significant stenoses. Assessment/Plan Assessment: presents with an acute left occipital infarct, thankfully resulting in a minor deficit, that of a right superior quadrantic field cut. There is no motor compromise. Recommendations: The patient would merit brief physical and occupational therapy evaluations . He should be seen by cardiology due to his history of dysrhythmia. An embolic etiology cannot be definitively excluded, however, he does have additional vascular risk factors which could underlie his stroke. We would continue his low-dose aspirin and a statin. I have attempted to explain to the patient and his that his stroke has likely no relation to his recent tick bite. Please feel free to call with any further questions. Consult Acknowledgment - Thank you for your consult request.
--- NOTE | 2016-11-26 15:03 | PN- Att Addend ---
Attending MD Review Statement Attending Statement Attending MD Statement: examined this patient, discuss w/resident/PA/EDUCATION SITE MANAGER, agreed w/resident/PA/EDUCATION SITE MANAGER, discussed with family, reviewed EMR data (avail), discussed w/ nursing, discussed w/case mgmt Attending Assessment/Plan: Laboratory Tests 11/26/16 0620: Troponin I < 0.01 11/25/16 2301: Troponin I < 0.01 11/25/16 2301: Anion Gap 8, Estimated GFR > 60, BUN/Creatinine Ratio 18.8, Hemoglobin A1c 5.5, CBC w Diff NO MAN DIFF REQ, RBC 4.45 L, MCV 96.8 H, MCH 31.9 H, RDW 13.4, MPV 8.8, Gran % 52.3, Lymphocytes % 36.2, Monocytes % 8.7, Eosinophils % 2.0, Basophils % 0.8, Absolute Granulocytes 3.3, Absolute Lymphocytes 2.3, Absolute Monocytes 0.6, Absolute Eosinophils 0.1, Absolute Basophils 0.1, PUBS MCHC 33.0 11/25/16 1810: Lactic Acid Cancelled 11/25/16 1530: Anion Gap 9, Estimated GFR > 60, BUN/Creatinine Ratio 17.8, Glucose 80, Lactic Acid 1.7, Calcium 9.7, Total Bilirubin 1.0, AST 23, ALT 44, Alkaline Phosphatase 48, Troponin I < 0.01, Total Protein 7.0, Albumin 3.9, Globulin 3.1, Albumin/ Globulin Ratio 1.3, Vitamin B12 560, Folate 17.4, TSH 1.660, PT 12.0, INR 1.14, APTT 30, CBC w Diff NO MAN DIFF REQ, RBC 4.76, MCV 95.1 H, MCH 32.0 H, RDW 13.3, MPV 9.3, Gran % 57.6, Lymphocytes % 31.5, Monocytes % 8.5, Eosinophils % 1.4, Basophils % 1.0, Absolute Granulocytes 3.9, Absolute Lymphocytes 2.2, Absolute Monocytes 0.6, Absolute Eosinophils 0.1, Absolute Basophils 0.1, PUBS MCHC 33.6, Lyme Disease Antibody 0.33 Vital Signs Date Time Temp Pulse Resp B/P B/P Pulse O2 O2 Flow FiO2 Mean Ox Delivery Rate 11/26 930 53 122/80 11/26 930 53 122/80 06/13 0931 53 122/80 11/26 0811 97.7 53 18 122/80 97 Room Air 11/26 0800 Room Air 11/26 0113 98.9 67 18 136/60 97 Room Air 11/25 2243 60 122/78 11/25 2106 98.7 65 18 140/64 96 Room Air 11/25 1841 98.0 78 18 146/80 97 Room Air 11/25 1733 97.1 64 18 150/78 100 11/25 1513 63 15 154/72 100 Room Air Room Air Pt admitted for stroke with gait instability. Stroke- f/u with neuro recommendations. Lyme disease- currently beign treated with doxycycline. ETOH abuse- Pt currently drinks about 1/2 bottle of wine and also drinks some scotch. D/w pt and his about quitting alcohol and atleast cutting on drinkign. Will watch for withdrawl symptoms. Also has low EF of 35% on last echo.
[2016-11-26 15:30] VITALS: BP 122/74
--- NOTE | 2016-11-26 18:48 | Cons- Cardiology ---
General Information and HPI Consulting Request Date of Consult: 11/26/16 Requested By: BHARAT MUNGUIA MD Reason for Consult: Stroke. Source of Information: patient, family, old records Exam Limitations: clinical condition, poor historian History of Present Illness: Mr. Franklin Eduardo is a 76-year-old male with long-standing history of tobacco use, COPD, hypertension, dyslipidemia, nonsustained ventricular tachycardia, documented nonischemic cardiomyopathy, without defibrillator placement secondary to patient wishes who presented on the advice of his primary care physician (You Cespedes M.D.) after an MRI performed for altered mental status revealed evidence of stroke. He also has been feeling poorly with complaints of dizziness, gait instability, recurrent falls, etc. and was discovered to have been bitten by a tick on 2016 that was removed at a local urgent care facility. At present he is visiting with his and is without complaints. He states that he is feeling improved overall. Allergies/Medications Allergies: Coded Allergies: Penicillins (UNKNOWN 11/25/16) Home Med List: Amiodarone HCl 200 MG TABLET 1 TAB PO DAILY HEART (Reported) Aspirin (Ecotrin*) 81 MG TABLET.DR 1 TAB PO DAILY HEART/BLOOD (Reported) Carvedilol 6.25 MG TABLET 1 TAB PO BID HEART/BP (Reported) Doxycycline Hyclate 100 MG TABLET 1 TAB PO BID ANTIBIOTIC (Reported) Duloxetine HCl 60 MG CAPSULE.DR 1 CAP PO DAILY NERVE PAIN (Reported) Dutasteride (Avodart) 0.5 MG CAPSULE 1 CAP PO DAILY (Reported) Fluticasone Propionate 50 MCG/ACTUATION SPRAY.SUSP 2 SPRAY NASB DAILY ALLERGIES (Reported) Lisinopril 5 MG TABLET 1 TAB PO DAILY BP (Reported) Multivitamin (Multi-Day Vitamins) 1 EACH TABLET 1 TAB PO DAILY SUPPLEMENT ( Reported) Omeprazole 20 MG CAPSULE.DR 1 CAP PO DAILY GI (Reported) Pravastatin Sodium 40 MG TABLET 1 TAB PO QPM CHOLESTEROL (Reported) Review of Systems Review of Systems: A 14 point system review was obtained and was noncontributory, other than as above. 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 Home Smoking Status: Former Smoker ETOH Use: DAILY 2-3 GLASSES WINE Exam & Diagnostic Data Vital Signs and I&O Vital Signs Date Time Temp Pulse Resp B/P B/P Pulse O2 O2 Flow FiO2 Mean Ox Delivery Rate 11/26 1530 97.9 61 16 122/74 97 Room Air 11/26 0931 53 122/80 11/26 0931 53 122/80 11/26 0931 53 122/80 11/26 0811 97.7 53 18 122/80 97 Room Air 11/26 0800 Room Air 11/26 0113 98.9 67 18 136/60 97 Room Air 11/25 2243 60 122/78 11/25 2106 98.7 65 18 140/64 96 Room Air 11/25 1841 98.0 78 18 146/80 97 Room Air Intake & Output 11/26 1600 11/26 0800 11/26 0000 11/25 1600 11/25 0800 11/25 0000 Intake Total 960 120 400 Output Total 400 Balance 960 -280 400 Intake, Oral 960 120 400 Output, Urine 400 Patient 175 lb 176 lb Weight Weight Reported by Patient Measurement Method Physical Exam: Well-developed, well-nourished elderly male in no acute distress. Vital signs: See above. HEENT: Normocephalic, atraumatic, EOMI, slightly dry mucous membranes. Neck: No JVD, no bruits. Lungs: Decreased sounds bilaterally otherwise clear. Heart: S1, S2 no murmur, gallop, or rub appreciated. PMI laterally displaced and diffuse. Abdomen: Soft, nontender, positive bowel sounds. Extremities: No edema. Labs/Ian Results: Laboratory Tests 11/26 11/25 11/25 0620 2301 2301 Chemistry Sodium (137 - 145 mmol/L) 135 L Potassium (3.5 - 5.1 mmol/L) 4.4 Chloride (98 - 107 mmol/L) 100 Carbon Dioxide (22 - 30 mmol/L) 27 Anion Gap (5 - 16) 8 BUN (9 - 20 mg/dL) 15 Creatinine (0.7 - 1.2 mg/dL) 0.8 Estimated GFR (>60 ml/min) > 60 BUN/Creatinine Ratio (7 - 25 %) 18.8 Hemoglobin A1c (4.2 - 5.8 %) 5.5 Troponin I (<0.11 ng/ml) < 0.01 < 0.01 Hematology CBC w Diff NO MAN DIFF REQ WBC (4.8 - 10.8 /CUMM) 6.4 RBC (4.70 - 6.10 /CUMM) 4.45 L Hgb (14.0 - 18.0 G/DL) 14.2 Hct (42 - 52 %) 43.0 MCV (80.0 - 94.0 FL) 96.8 H MCH (27.0 - 31.0 PG) 31.9 H RDW (11.5 - 14.5 %) 13.4 Plt Count (130 - 400 /CUMM) 145 MPV (7.4 - 10.4 FL) 8.8 Gran % (42.2 - 75.2 %) 52.3 Lymphocytes % (20.5 - 51.1 %) 36.2 Monocytes % (1.7 - 9.3 %) 8.7 Eosinophils % (0 - 5 %) 2.0 Basophils % (0.0 - 2.0 %) 0.8 Absolute Granulocytes (1.4 - 6.5 /CUMM) 3.3 Absolute Lymphocytes (1.2 - 3.4 /CUMM) 2.3 Absolute Monocytes (0.10 - 0.60 /CUMM) 0.6 Absolute Eosinophils (0.0 - 0.7 /CUMM) 0.1 Absolute Basophils (0.0 - 0.2 /CUMM) 0.1 PUBS MCHC (33.0 - 37.0 G/DL) 33.0 11/25 11/25 1810 1530 Chemistry Sodium (137 - 145 mmol/L) 139 Potassium (3.5 - 5.1 mmol/L) 5.1 Chloride (98 - 107 mmol/L) 100 Carbon Dioxide (22 - 30 mmol/L) 30 Anion Gap (5 - 16) 9 BUN (9 - 20 mg/dL) 16 Creatinine (0.7 - 1.2 mg/dL) 0.9 Estimated GFR (>60 ml/min) > 60 BUN/Creatinine Ratio (7 - 25 %) 17.8 Glucose (65 - 99 mg/dL) 80 Lactic Acid (0.7 - 2.1 mmol/L) Cancelled 1.7 Calcium (8.4 - 10.2 mg/dL) 9.7 Total Bilirubin (0.2 - 1.3 mg/dL) 1.0 AST (17 - 59 U/L) 23 ALT (21 - 72 U/L) 44 Alkaline Phosphatase (< 127 U/L) 48 Troponin I (<0.11 ng/ml) < 0.01 Total Protein (6.3 - 8.2 g/dL) 7.0 Albumin (3.5 - 5.0 g/dL) 3.9 Globulin (1.9 - 4.2 gm/dL) 3.1 Albumin/Globulin Ratio (1.1 - 2.2 %) 1.3 Vitamin B12 (239 - 931 pg/mL) 560 Folate (2.76 - 20.0 ng/mL) 17.4 TSH (0.270 - 4.200 uIU/mL) 1.660 Coagulation PT (9.4 - 12.5 SEC) 12.0 INR (0.90 - 1.17) 1.14 APTT (25 - 37 SEC) 30 Hematology CBC w Diff NO MAN DIFF REQ WBC (4.8 - 10.8 /CUMM) 6.8 RBC (4.70 - 6.10 /CUMM) 4.76 Hgb (14.0 - 18.0 G/DL) 15.2 Hct (42 - 52 %) 45.3 MCV (80.0 - 94.0 FL) 95.1 H MCH (27.0 - 31.0 PG) 32.0 H RDW (11.5 - 14.5 %) 13.3 Plt Count (130 - 400 /CUMM) 165 MPV (7.4 - 10.4 FL) 9.3 Gran % (42.2 - 75.2 %) 57.6 Lymphocytes % (20.5 - 51.1 %) 31.5 Monocytes % (1.7 - 9.3 %) 8.5 Eosinophils % (0 - 5 %) 1.4 Basophils % (0.0 - 2.0 %) 1.0 Absolute Granulocytes (1.4 - 6.5 /CUMM) 3.9 Absolute Lymphocytes (1.2 - 3.4 /CUMM) 2.2 Absolute Monocytes (0.10 - 0.60 /CUMM) 0.6 Absolute Eosinophils (0.0 - 0.7 /CUMM) 0.1 Absolute Basophils (0.0 - 0.2 /CUMM) 0.1 PUBS MCHC (33.0 - 37.0 G/DL) 33.6 Serology Lyme Disease Antibody (RATIO) 0.33 Diagnostic Data EKG Results (11/25/2016) sinus rhythm, first-degree AV block, probable old inferior wall myocardial infarction, and abnormal precordial R wave progression consistent with old anteroseptal wall myocardial infarction, and ST-T wave abnormalities consistent with ischemia. No significant change when compared to previous tracing from 10/25/2004. CXR Results (11/25/2016) no acute cardiopulmonary abnormality. Other Results Head MRI (11/25/2016) Left AUTOCAD DRAFTSMAN territory infarct with evidence of hemorrhage. Carotid ultrasound (11/25/2016) Plaque is present in the internal carotid arteries but velocity measurements are normal and there is no evidence to suggest a hemodynamically significant stenosis of greater than 50% diameter reduction. MRA head/neck (11/25/2016) No occlusion or aneurysm of [place]. There is atherosclerotic changes of the internal carotid arteries at the carotid artery siphon bilaterally. Assessment/Plan Assessment/Plan [id number] w/ long-standing history of tobacco use, COPD, HTN, HLD, NSVT, nonischemic CM, w/o AICD per patient wishes who presented w/ AMS and MRI evidence of stroke. The concern is whether, given his history, the stroke occurred as a result of a cardioembolic event secondary to a left ventricular thrombus or whether the patient has been experiencing paroxysms of atrial fibrillation and had the stroke as result of thrombus in his left atrial appendage. Naturally, other potential etiologies for the stroke exist, given his widespread evidence of atherosclerosis. Fortunately, his carotid ultrasound did not reveal any evidence of high-grade stenosis, mobile atherosclerotic plaque, etc. Recommendations: * Continue on telemetry, follow-up troponins, follow-up electrocardiograms. * Schedule for transthoracic echocardiogram and consider transesophageal echocardiogram. * Continue antiplatelet and statin therapy. Check with Neurology to see if they feel he would benefit from being on Aggrenox as opposed to aspirin alone, as he has been on this chronically. * No role for anticoagulation. * Continue on amiodarone for his history of NSVT and cardiomyopathy. * We will also discuss the potential benefit of placing a [employer] Reveal LINQ recorder to further assess for paroxysmal atrial fibrillation. * Continue occupational and physical therapy. * Continue DVT prophylaxis. Further recommendations will follow, Thank you. Consult Acknowledgment - Thank you for your consult request.
[2016-11-27 00:35] VITALS: BP 116/52
[2016-11-27 08:00] VITALS: BP 120/70
[2016-11-27 08:25] VITALS: BP 120/78
--- NOTE | 2016-11-27 08:27 | PN- Housestaff ---
Subjective Follow-up For: Left BUSINESS DEVELOPMENT ASSOCIATE infarct Complaints: no complaints Tele-Events Since Last Visit: No any overnight events Subjective: Patient is seen and examined at the bedside. He doesn't have any active complaints. Review of Systems Constitutional: Denies: no symptoms. Objective Last 24 Hrs of Vital Signs/I&O Vital Signs Date Time Temp Pulse Resp B/P B/P Pulse O2 O2 Flow FiO2 Mean Ox Delivery Rate 11/27 1530 98.2 61 14 112/62 99 Room Air 11/27 1007 64 122/74 11/27 1007 64 122/74 11/27 1006 64 122/70 11/27 0825 97.8 57 18 120/78 98 Room Air 11/27 0800 58 16 120/70 11/27 0035 97.7 57 18 116/52 97 11/26 2159 61 118/70 Intake & Output 11/27 1600 11/27 0800 11/27 0000 Intake Total 640 200 600 Output Total 400 Balance 640 -200 600 Intake, Oral 640 200 600 Output, Urine 400 Physical Exam General Appearance: Alert, Oriented X3, Cooperative, No Acute Distress Cardiovascular: Normal S1, Normal S2 Lungs: Clear to Auscultation, Normal Air Movement Abdomen: Soft, No Tenderness Neurological: Normal Speech, Strength at 5/5 X4 Ext, Normal Tone, Sensation Intact, Cranial Nerves 3-12 NL, Reflexes 2+ Extremities: No Clubbing, No Cyanosis, No Edema Current Medications: Current Medications Sig/Guzman Start time Last Medication Dose Route Stop Time Status Admin Amiodarone HCl 200 MG DAILY 11/26 1000 AC 11/27 PO 1007 Aspirin 81 MG DAILY 11/26 1000 DC 11/26 PO 0931 Atorvastatin Calcium 40 MG 1700 11/26 1700 AC 11/26 PO 1632 Carvedilol 6.25 MG BID 11/25 2200 AC 11/27 PO 1007 Dipyridamole/Aspirin 1 CAP BID 11/27 1015 AC 11/27 PO 1307 Doxycycline Hyclate 100 MG BID 11/250 AC 11/27 PO 1006 Duloxetine HCl 60 MG DAILY 11/26 1000 AC 11/27 PO 1007 Fluticasone 2 SPRAY DAILY 11/26 1330 AC 11/27 Propionate AURE 1007 Omeprazole 20 MG DAILY 11/26 1000 AC 11/27 PO 1006 Polyethylene Glycol 17 GM DAILY 11/26 1909 AC 11/26 PO 2159 Tamsulosin HCl 0.4 MG DAILY 11/26 1000 AC 11/27 PO 1006 Assessment/Plan Assessment: Patient is a 68-year-old male with significant Past medical history of hypertension, hyperlipidemia, cardiomyopathy, presented with history of confusion since last 1 year, history of tick bite on the October 30, history of recurrent fall after that. Vital signs at the time of admission-temperature 97.1, pulse 63, respiratory rate 18, blood pressure 150/76, SPO2 100% on room air Pertinent lab -MCV 95.1,K-5.1 Plan - Left BUSINESS DEVELOPMENT ASSOCIATE territory infarct - * Neuro check every 4 hourly * Keep head end of the bed elevated * Take all aspiration precautions * We will follow Neurology recommendation - advised aspirin and statins * MRI of the brain - Left BUSINESS DEVELOPMENT ASSOCIATE infarct, carotid Doppler - good flow with plaque in ICA, echocardiogram - will follow * Will continue high-dose statin, lisinopril, and start him on Aggrenox. * Strict intake output charting * PT/OT ETOH withdrawl According to patient he drinks 3 glass/1/2 bottle/shots daily. * No withdrawal symptoms, CIWA -0 Cardiomyopathy with history of nonsustained VT, poor ejection fraction * Telemetry monitoring * We'll continue tab amiodarone * We will follow cardiology recommendations - according to them if TTE, will show evidence of cardioembolic source than we will plan for SWETHA. Hypertension * We will continue tablet carvedilol 6.25 BID Diet-Heart Healthy diet. DVT prophylaxis -ALP S CODE STATUS-full code Problem List: 1. Cardiomyopathy 2. Hyperlipidemia 3. Hypertension 4. Cerebral infarction involving posterior cerebral artery 5. CVA (cerebral vascular accident) Pain Ratin Pain Location: not applicable Pain Goal: Remain pain free Pain Plan: mild Tomorrow's Labs & Rationales: not required
[2016-11-27 15:30] VITALS: BP 112/62
--- NOTE | 2016-11-27 16:24 | PN- Att Addend ---
Attending MD Review Statement Attending Statement Attending MD Statement: examined this patient, discuss w/resident/PA/MOISTURE METER READER, agreed w/resident/PA/MOISTURE METER READER, discussed with family, reviewed EMR data (avail), discussed w/ nursing, discussed w/case mgmt Attending Assessment/Plan: Vital Signs Date Time Temp Pulse Resp B/P B/P Pulse O2 O2 Flow FiO2 Mean Ox Delivery Rate 11/27 1007 64 122/74 11/27 1007 64 122/74 11/27 1006 64 122/70 11/27 0825 97.8 57 18 120/78 98 Room Air 11/27 0800 58 16 120/70 11/27 0035 97.7 57 18 116/52 97 11/26 2159 61 118/70 Pt admitted for stroke with gait instability. Stroke- f/u with neuro recommendations. Switched to aggrenox from Asa. Echo results pending. Lyme disease- currently beign treated with doxycycline. ETOH abuse- Pt currently drinks about 1/2 bottle of wine and also drinks some scotch. D/w pt and his about quitting alcohol and atleast cutting on drinkign. Will watch for withdrawl symptoms. Also has low EF of 35% on last echo. DC ciwa protocol.
--- NOTE | 2016-11-27 17:01 | PN- Cardiology ---
Subjective Subjective: No complaints. Remains in sinus rhythm on telemetry with a 5 and 4 beat run of NSVT at around 8 :45 AM. Objective Vital Signs and I&Os Vital Signs Date Time Temp Pulse Resp B/P B/P Pulse O2 O2 Flow FiO2 Mean Ox Delivery Rate 11/27 1530 98.2 61 14 112/62 99 Room Air 11/27 1007 64 122/74 11/27 1007 64 122/74 11/27 1006 64 122/70 11/27 0825 97.8 57 18 120/78 98 Room Air 11/27 0800 58 16 120/70 11/27 0035 97.7 57 18 116/52 97 11/26 2159 61 118/70 Intake & Output 11/27 1600 11/27 0800 11/27 0000 11/26 1600 11/26 0800 11/26 0000 Intake Total 640 200 600 960 120 400 Output Total 400 400 Balance 640 -200 600 960 -280 400 Intake, Oral 640 200 600 960 120 400 Output, Urine 400 400 Patient 175 lb Weight Physical Exam: Well-developed, well-nourished elderly male in no acute distress. Vital signs: See above. HEENT: Normocephalic, atraumatic, EOMI, slightly dry mucous membranes. Neck: No JVD, no bruits. Lungs: Decreased sounds bilaterally otherwise clear. Heart: S1, S2 no murmur, gallop, or rub appreciated. PMI laterally displaced and diffuse. Abdomen: Soft, nontender, positive bowel sounds. Extremities: No edema. Current Medications: Current Medications Sig/Guzman Start time Last Medication Dose Route Stop Time Status Admin Amiodarone HCl 200 MG DAILY 11/26 1000 AC 11/27 PO 1007 Aspirin 81 MG DAILY 11/26 1000 DC 11/26 PO 0931 Atorvastatin Calcium 40 MG 1700 11/26 1700 AC 11/26 PO 1632 Carvedilol 6.25 MG BID 11/25 2200 AC 11/27 PO 1007 Dipyridamole/Aspirin 1 CAP BID 11/27 1015 AC 11/27 PO 1307 Doxycycline Hyclate 100 MG BID 11/25 2200 AC 11/27 PO 1006 Duloxetine HCl 60 MG DAILY 11/26 1000 AC 11/27 PO 1007 Fluticasone 2 SPRAY DAILY 11/26 1330 AC 11/27 Propionate AURE 1007 Omeprazole 20 MG DAILY 11/26 1000 AC 11/27 PO 1006 Polyethylene Glycol 17 GM DAILY 11/26 1909 AC 11/26 PO 2159 Tamsulosin HCl 0.4 MG DAILY 11/26 1000 AC 11/27 PO 1006 Results Last 48 Hrs of Labs/Mics: Laboratory Tests 11/26/16 0620: Troponin I < 0.01 11/25/16 2301: Troponin I < 0.01 11/25/16 2301: Anion Gap 8, Estimated GFR > 60, BUN/Creatinine Ratio 18.8, Hemoglobin A1c 5.5, CBC w Diff NO MAN DIFF REQ, RBC 4.45 L, MCV 96.8 H, MCH 31.9 H, RDW 13.4, MPV 8.8, Gran % 52.3, Lymphocytes % 36.2, Monocytes % 8.7, Eosinophils % 2.0, Basophils % 0.8, Absolute Granulocytes 3.3, Absolute Lymphocytes 2.3, Absolute Monocytes 0.6, Absolute Eosinophils 0.1, Absolute Basophils 0.1, PUBS MCHC 33.0 11/25/161809: Lactic Acid Cancelled Assessment/Plan Assessment/Plan [id number]-m w/ long-standing history of tobacco use, COPD, HTN, HLD, NSVT, nonischemic CM, w/o AICD per patient wishes who presented w/ AMS and MRI evidence of stroke. The concern is whether, given his history, the stroke occurred as a result of a cardioembolic event secondary to a left ventricular thrombus or whether the patient has been experiencing paroxysms of atrial fibrillation and had the stroke as result of thrombus in his left atrial appendage. Naturally, other potential etiologies for the stroke exist, given his widespread evidence of atherosclerosis. Fortunately, his carotid ultrasound did not reveal any evidence of high-grade stenosis, mobile atherosclerotic plaque, etc. * Continue on telemetry to exclude the presence of paroxysmal atrial fibrillation. * Obtain transthoracic echocardiogram (TTE) to assess for a cardioembolic source. * If no evidence of cardioembolic source will discuss the possibility of performing transesophageal echocardiogram (SWETHA), given its superior resolution. * Have also discussed the potential benefit of implanting a [employer] LINQ recorder. * Continue present medical regimen. * Continue DVT prophylaxis. Continue telemetry? Yes
--- NOTE | 2016-11-27 18:01 | Discharge Summary ---
Visit Information Visit Dates Admission Date: 11/25/16 Discharge Date: 11/28/2016 Hospital Course Course Attending Physician: NILDA OBREGON,BHARAT Vang Primary Care Physician: SHITAL OBREGON,[facility] Hospital Course: Patient is a 68-year-old male with significant Past medical history of hypertension, hyperlipidemia, cardiomyopathy, presented with history of confusion since last 1 year, history of tick bite on the October 30, history of recurrent fall after that. 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 We did follow up MRI of the brain, which confirmed left DOCK MANAGER territory infarct with areas of hemorrhages. We admitted the patient to telemetry floor and started treatment on the line of stroke by giving aspirin, high-dose statin, and regular neurochecks. We did further workup to rule out the cause.MRA showed atherosclerotic changes of both ICA at the carotid artery siphon. Carotid doppler showed Plaque in ICA and stenosis was <50% diameter. We took neurology consult they advised to continue aspirin and statin. We took cardiology consult and they recommended to start patient on aggrenox. We started the patient on Aggrenox and discharged him on it. We advised him to follow-up with PCP/ neurologist/ms sql developer for further management. Nonischemic Cardiomyopathy without defibrillator placement secondary to patient wishes We admitted patient into telemetry floor. He had episodes of non sustained VT. We repeated echocardiogram which showed [id number]%,stage 1 diastolic dysfunction ,Mild LAD,Mild dilated ascending aorta (4cms). There was no any evidence of apical and luman clot. Dr. Mansfield discussed with the patient about the the possibility of placing a [employer] LINQ recorder to determine if he is having paroxysms of atrial fibrillation and ICD placement to protect him against a malignant dysrhythmia. Chronic alcohol use Advised to quit alcohol and offered help. Allergies: Coded Allergies: Penicillins (UNKNOWN 11/25/16) Disposition Summary Disposition Principal Diagnosis: Left DOCK MANAGER territory infarct with hemorrhageS Additional Diagnosis: Hypertension Cardiomyopathy-nonsustained VT with poor ejection fraction <35% Discharge Disposition: home or self care Discharge Instructions General Discharge Information Code Status: Full Code Patient's Diet: Heart healthy diet Patient's Activity: As tolerated, take all fall precautions Follow-Up Instructions/Appts: Advised to follow-up with your PCP within a week of discharge Advised to follow-up with your neurologist for further management of the stroke. Advised to follow-up with ms sql developer for further management of cardiomyopathy and arrhythmias. Advised to take the medication as advised. Medications at Discharge Discharge Medications: Stop taking the following medications: Aspirin (Ecotrin*) 81 MG TABLET. ORAL DAILY Doxycycline Hyclate (Doxycycline Hyclate) 100 MG TABLET ORAL TWICE DAILY Qty = 42 Continue taking these medications: Multivitamin (Multi-Day Vitamins) 1 EACH TABLET 1 Tablet ORAL DAILY Comments: Last Taken: NOT GIVEN AT HOSPITAL Time: Omeprazole (Omeprazole) 20 MG CAPSULE. 1 Capsule ORAL DAILY Qty = 90 Comments: Last Taken: 11/28/16 Time: 9 AM Lisinopril (Lisinopril) 5 MG TABLET 1 Tablet ORAL DAILY Qty = 90 Comments: Last Taken: NOT GIVEN AT HOSPITAL Time: Carvedilol (Carvedilol) 6.25 MG TABLET 1 Tablet ORAL TWICE DAILY Qty = 180 Comments: Last Taken: 11/28/16 Time: 0900 AM Pravastatin Sodium (Pravastatin Sodium) 40 MG TABLET 1 Tablet ORAL Every night Qty = 90 Comments: Last Taken: NOT GIVEN AT HOSPITAL Time: Amiodarone HCl (Amiodarone HCl) 200 MG TABLET 1 Tablet ORAL DAILY Qty = 90 Comments: Last Taken: 11/28/16 Time: 0900 AM Dutasteride (Avodart) 0.5 MG CAPSULE 1 Capsule ORAL DAILY Qty = 90 Comments: Last Taken: NOT GIVEN AT HOSPITAL Time: Fluticasone Propionate (Fluticasone Propionate) 50 MCG/ACTUATION SPRAY.SUSP 2 [place] Both sides of nose DAILY Qty = 16 Comments: Last Taken: 11/27/16 Time: 10 AM Duloxetine HCl (Duloxetine HCl) 60 MG CAPSULE.DR 1 Capsule ORAL DAILY Qty = 90 Comments: Last Taken: 11/28/16 Time: 0900 AM Start taking the following new medications: Dipyridamole W/ Aspirin (Aggrenox 25 MG-200 MG Capsule) 25 MG-200 MG CPMP.12HR 1 Capsule ORAL TWICE DAILY Qty = 60 No Refills Comments: Last Taken: 11/28/16 Time: 0900 AM Copies To: SHITAL OBREGON,BAL Attending MD Review Statement Documenting Attending: BHARAT MUNGUIA MD
[2016-11-27 21:19] VITALS: BP 118/64
[2016-11-28 00:23] VITALS: BP 126/67
--- NOTE | 2016-11-28 07:41 | PN- Housestaff ---
Subjective Follow-up For: f/u Left HAZMAT CDL A DRIVER infarct f/u CMP Complaints: no complaints Tele-Events Since Last Visit: episodes of PVCs Subjective: patient is seen and examined at the bed side. He doesnt have ant active complains. Review of Systems Constitutional: Denies: no symptoms. Objective Last 24 Hrs of Vital Signs/I&O Vital Signs Date Time Temp Pulse Resp B/P B/P Pulse O2 O2 Flow FiO2 Mean Ox Delivery Rate 11/28 0023 97.2 59 20 126/67 95 11/28 0000 Room Air 11/27 2118 97.5 62 20 118/64 97 Room Air 11/27 2116 62 118/64 11/27 1530 98.2 61 14 112/62 99 Room Air 11/27 1007 64 122/74 11/27 1007 64 122/74 11/27 1006 64 122/70 11/27 0825 97.8 57 18 120/78 98 Room Air Intake & Output 11/28 1600 11/28 0800 11/28 0000 Intake Total 450 640 Output Total Balance 450 640 Intake, Oral 450 640 Physical Exam General Appearance: Alert, Oriented X3, Cooperative, No Acute Distress Cardiovascular: Normal S1, Normal S2, murmur present Lungs: Clear to Auscultation, Normal Air Movement Neurological: Normal Speech Current Medications: Current Medications Sig/Guzman Start time Last Medication Dose Route Stop Time Status Admin Amiodarone HCl 200 MG DAILY 11/26 1000 AC 11/27 PO 1007 Aspirin 81 MG DAILY 11/26 1000 DC 11/26 PO 0931 Atorvastatin Calcium 40 MG 1700 11/26 1700 AC 11/27 PO 1806 Carvedilol 6.25 MG BID 11/25 2200 AC 11/27 PO 211 Dipyridamole/Aspirin 1 CAP BID 11/27 1015 AC 11/27 PO 2115 Doxycycline Hyclate 100 MG BID 11/25 2200 AC 11/27 PO 2116 Duloxetine HCl 60 MG DAILY 11/26 1000 AC 11/27 PO 1007 Fluticasone 2 SPRAY DAILY 11/26 1330 AC 11/27 Propionate AURE 1007 Omeprazole 20 MG DAILY 11/26 1000 AC 11/27 PO 1006 Polyethylene Glycol 17 GM DAILY 11/26 1909 AC 11/27 PO 1806 Tamsulosin HCl 0.4 MG DAILY 11/26 1000 AC 11/27 PO 1006 Assessment/Plan Assessment: Patient is a 68-year-old male with significant Past medical history of hypertension, hyperlipidemia, cardiomyopathy, presented with history of confusion since last 1 year, history of tick bite on the October 30, history of recurrent fall after that. Vital signs at the time of admission-temperature 97.1, pulse 63, respiratory rate 18, blood pressure 150/76, SPO2 100% on room air Pertinent lab -MCV 95.1,K-5.1 Plan - Discharge today Discussed with Dr Mansfield about the echocardiogram, LVEF is still poor 30 -35%. He wanted to do limited echo with contrast to r/o apical thrombus, and didnt showed any clot. Left HAZMAT CDL A DRIVER territory infarct - * MRI of the brain - Left HAZMAT CDL A DRIVER infarct, carotid Doppler - good flow with plaque in ICA, echocardiogram - will follow * Will continue high-dose statin, lisinopril, and Aggrenox. ETOH withdrawl According to patient he drinks 3 glass/1/2 bottle/shots daily. * We will advise to quit ETOH. Cardiomyopathy with history of nonsustained VT, poor ejection fraction * We'll continue tab amiodarone Hypertension * We will continue tablet carvedilol 6.25 BID Diet-Heart Healthy diet. DVT prophylaxis -ALP S CODE STATUS-full code Problem List: 1. Cardiomyopathy 2. Hyperlipidemia 3. Hypertension 4. Cerebral infarction involving posterior cerebral artery 5. CVA (cerebral vascular accident) Pain Ratin Pain Location: not applicable Pain Goal: Remain pain free Pain Plan: mild Tomorrow's Labs & Rationales: not required DVT/Prophylaxis: mechanical, pharmacological Tomorrow's Labs & Rationales: not required DVT/Prophylaxis: mechanical, pharmacological
[2016-11-28] MEDS ORDERED: AGGRENOX 25 MG1 EACH PO ×2 (08:22→17:05)
[2016-11-28 08:24] VITALS: BP 120/60
--- NOTE | 2016-11-28 08:38 | Patient Discharge Instructions ---
Discharge Instructions General Discharge Information You were seen/treated for: Stroke, we called cerebrovascular accident Special Instructions: please follow up with your neurologist and production sanitizer. Please follow up with your PCP. Please take the medication as advised Diet Continue normal diet: No Recommended Diet: Heart Healthy Activity Full Activity/No Limits: No (as tolerated) Acute Coronary Syndrome Inclusion Criteria At DC or during hospital stay patient has or had the following: ACS DIAGNOSIS No Discharge Core Measures Meds if any: Prescribed or Continued at Discharge Meds if any: NOT Prescribed or Continued at Discharge Congestive Heart Failure Inclusion Criteria At DC or during hospital stay patient has or had the following: CHF DIAGNOSIS No Discharge Core Measures Meds if any: Prescribed or Continued at Discharge Meds if any: NOT Prescribed or Continued at Discharge Cerebrovascular accident Inclusion Criteria At DC or during hospital stay patient has or had the following: CVA/TIA Diagnosis Yes Discharge Core Measures Meds if any: Prescribed or Continued at Discharge Antithrombotic No Statin (required if LDL =>70) Yes Anticoagulant Yes Meds if any: NOT Prescribed or Continued at Discharge Venous thromboembolism Inclusion Criteria VTE Diagnosis No VTE Type NONE VTE Confirmed by (Test) NONE Discharge Core Measures - Per Current guidelines, there needs to be overlap - treatment for the first 5 days of Warfarin therapy. - If discharged on Warfarin prior to 5 days of - overlap therapy, the patient will need to be - assessed for post discharge needs including - *Post discharge parental anticoagulation - *Warfarin and/or parental anticoagulation education - *Follow up date to check INR post discharge At least 5 days overlap therapy as Inpatient No Meds if any: Prescribed or Continued at Discharge Warfarin No Note: Overlap Therapy is Warfarin and Anticoagulant Meds if any: NOT Prescribed or Continued at Discharge
--- NOTE | 2016-11-28 13:02 | NUR ---
PATIENT HAD A 4 BEAT RUN OF VTACH AT 1256 PM. PT IN BED AT THIS TIME A&OX3. AT BEDSIDE. MD YARI SPEARS AWARE.
--- NOTE | 2016-11-28 13:29 | ECHOCARDIOGRAM REPORT ---
NAMAN MUÑOZ Age: 76 : 1940 Gender: M Exam Date: 11/27/2016 18:23 Exam Location: 1 [address] Ht (in): 70 Wt (lb): 175 BSA: 1.99 BP: 122 / 80 Ordering Physician: JUNG WALLER, Referring Physician: Trenton Mansfield MD Technologist: Olga Ochoa [facility] Room Number: [id number] Indications: ARRHYTHMIAS Rhythm: Sinus Technical Quality: Fair FINDINGS Left Ventricle Normal size left ventricle. Mild to moderate concentric left ventricular hypertrophy. Moderately to severely reduced global left ventricular systolic function. Moderately to severely abnormal left ventricular ejection fraction estimated at 30-35%. Abnormal relaxation filling pattern of the left ventricle for age (stage 1 diastolic dysfunction). Right Ventricle Normal right ventricular size and function. Right Atrium Normal right atrial size. Left Atrium Mild to moderate left atrial dilatation. Mitral Valve Mildly calcified mitral valve annulus. Mitral valve mildly thickened. Mild mitral regurgitation. Aortic Valve Trileaflet aortic valve. Mild aortic sclerosis. No aortic valve stenosis or regurgitation. Tricuspid Valve Structurally normal tricuspid valve. Mild tricuspid regurgitation. Mild pulmonary hypertension. Right ventricular systolic pressure estimated at 38 mmHg. Pulmonic Valve Pulmonic valve not well visualized, grossly normal. No pulmonic regurgitation. Pericardium No pericardial effusion. Great Vessels Normal size aortic root. Mildly dilated ascending aorta (4.0cm). Normal size inferior vena cava. CONCLUSIONS Normal size left ventricle. Mild to moderate concentric left ventricular hypertrophy. Moderately to severely reduced global left ventricular systolic function. Moderately to severely abnormal left ventricular ejection fraction estimated at 30-35%. Abnormal relaxation filling pattern of the left ventricle for age (stage 1 diastolic dysfunction). Normal right ventricular size and function. Normal right atrial size. Mild to moderate left atrial dilatation. Mild mitral regurgitation. Mild tricuspid regurgitation. Mild pulmonary hypertension. Mildly dilated ascending aorta (4.0cm). Trenton Mansfield M.D. (Electronically Signed) Final Date: 28 November 2016 13:28 MEASUREMENTS (Male / Female) Normal Values 2D ECHO LV Diastolic Diameter PLAX 5.7 cm 4.2 - 5.9 / 3.9 - 5.3 cm LV Systolic Diameter PLAX 4.8 cm 2.1 - 4.0 cm LV Fractional Shortening PLAX 15.8 % 25 - 46 % LV Ejection Fraction 2D Teich 32.8 % IVS Diastolic Thickness 1.4 cm LVPW Diastolic Thickness 1.3 cm LV Relative Wall Thickness 0.5 RV Internal Dim ED PLAX 2.9 cm 1.9 - 3.8 cm LVOT Diameter 2.2 cm Aortic Root Diameter 3.0 cm LA Systolic Diameter LX 4.4 cm 3.0 - 4.0 / 2.7 - 3.8 cm LA Volume 68.0 cm 18 - 58 / 22 - 52 cm Ascending Aorta Diameter 3.9 cm DOPPLER AV Peak Velocity 159.0 cm/s AV Peak Gradient 10.1 mmHg AV Mean Velocity 102.0 cm/s AV Mean Gradient 5.0 mmHg AV Velocity Time Integral 34.9 cm LVOT Peak Velocity 79.4 cm/s LVOT Peak Gradient 2.5 mmHg LVOT Mean Velocity 56.3 cm/s LVOT Mean Gradient 1.0 mmHg LVOT Velocity Time Integral 17.8 cm LVOT Stroke Volume 67.7 cm AV Area Cont Eq vti 1.9 cm AV Area Cont Eq pk 1.9 cm MV Peak Velocity 90.3 cm/s MV Peak Gradient 3.3 mmHg MV Mean Velocity 50.2 cm/s MV Mean Gradient 1.0 mmHg Mitral E Point Velocity 66.6 cm/s Mitral A Point Velocity 79.5 cm/s Mitral E to A Ratio 0.8 MV PHT Velocity 67.9 cm/s MV Deceleration Gregg 180.0 cm/s MV Pressure Half Time 113.2 ms MV Area PHT 1.9 cm MV Deceleration Time 259.0 ms TR Peak Velocity 263.0 cm/s TR Peak Gradient 27.7 mmHg Right Atrial Pressure 10.0 mmHg Pulmonary Artery Systolic Pressu 37.7 mmHg Right Ventricular Systolic Press 37.7 mmHg PV Peak Velocity 148.0 cm/s PV Peak Gradient 8.8 mmHg PV Mean Velocity 90.6 cm/s PV Mean Gradient 4.0 mmHg PV Velocity Time Integral 26.7 cm LV E' Lateral Velocity 9.0 cm/s Mitral E to LV E' Lateral Ratio 7.4 LV E' Septal Velocity 4.5 cm/s Mitral E to LV E' Septal Ratio 14.7
[2016-11-28 15:51] VITALS: BP 104/62
--- NOTE | 2016-11-28 16:54 | PN- Att Addend ---
Attending MD Review Statement Attending Statement Attending MD Statement: examined this patient, discuss w/resident/PA/CEMENT FINISHER APPRENTICE, agreed w/resident/PA/CEMENT FINISHER APPRENTICE, discussed with family, reviewed EMR data (avail), discussed w/ nursing, discussed w/case mgmt Attending Assessment/Plan: Vital Signs Date Time Temp Pulse Resp B/P B/P Pulse O2 O2 Flow FiO2 Mean Ox Delivery Rate 11/28 1551 98.1 57 18 104/62 98 Room Air 11/28 0914 98.1 11/28 0908 65 116/68 11/28 0908 65 116/68 11/28 0908 65 116/68 11/28 0824 97.8 65 18 120/60 97 Room Air 11/28 0023 97.2 59 20 126/67 95 11/28 0000 Room Air 11/279 97.5 62 20 118/64 97 Room Air 11/276 62 118/64 Stroke- Lt MCA infarct without hemorrhage. Echo shows ef of 30-35 % , no evidence of thrombus. Possible dc today if cardio is ok . d/w pt the importance of quitting alcohol given his low EF already.
--- NOTE | 2016-11-28 17:51 | PN- Cardiology ---
Subjective Subjective: No complaints. On telemetry in sinus rhythm with first-degree AV block; ventricular ectopy with a 4 beat run at around 12 noon being the most complex form. Objective Vital Signs and I&Os Vital Signs Date Time Temp Pulse Resp B/P B/P Pulse O2 O2 Flow FiO2 Mean Ox Delivery Rate 11/28 1551 98.1 57 18 104/62 98 Room Air 11/28 0914 98.1 11/28 0908 65 116/68 11/28 0908 65 116/68 11/28 0908 65 116/68 11/28 0824 97.8 65 18 120/60 97 Room Air 11/28 0023 97.2 59 20 126/67 95 11/28 0000 Room Air 11/27 2119 97.5 62 20 118/64 97 Room Air 11/27 2116 62 118/64 Intake & Output 11/28 1600 11/28 0800 11/28 0000 11/27 1600 11/27 0800 11/27 0000 Intake Total 450 640 640 200 600 Output Total 400 Balance 450 640 640 -200 600 Intake, Oral 450 640 640 200 600 Number 1 Bowel Movements Output, Urine 400 Physical Exam: Well-developed, well-nourished elderly male in no acute distress. Vital signs: See above. HEENT: Normocephalic, atraumatic, EOMI, slightly dry mucous membranes. Neck: No JVD, no bruits. Lungs: Decreased sounds bilaterally otherwise clear. Heart: S1, S2 no murmur, gallop, or rub appreciated. PMI laterally displaced and diffuse. Abdomen: Soft, nontender, positive bowel sounds. Extremities: No edema. Current Medications: Current Medications Sig/Guzman Start time Last Medication Dose Route Stop Time Status Admin Amiodarone HCl 200 MG DAILY 11/26 1000 AC 11/28 PO 0908 Atorvastatin Calcium 40 MG 1700 11/26 1700 AC 11/27 PO 1806 Carvedilol 6.25 MG BID 11/25 2200 AC 11/28 PO 0908 Dipyridamole/Aspirin 1 CAP BID 11/27 1015 AC 11/28 PO 0908 Doxycycline Hyclate 100 MG BID 11/25 2200 AC 11/28 PO 1207 Duloxetine HCl 60 MG DAILY 11/26 1000 AC 11/28 PO 0908 Fluticasone 2 SPRAY DAILY 11/26 1330 AC 11/27 Propionate AURE 1007 Omeprazole 20 MG DAILY 11/26 1000 AC 11/28 PO 0907 Patient Medication 1 ED .[facility] 11/28 1412 [place] Teaching ED 11/28 1413 Polyethylene Glycol 17 GM DAILY 11/26 1909 AC 11/27 PO 1806 Tamsulosin HCl 0.4 MG DAILY 11/26 1000 AC 11/28 PO 0908 Assessment/Plan Assessment/Plan 76-y-o-w-m w/ long-standing history of tobacco use, COPD, HTN, HLD, NSVT, nonischemic CM, w/o AICD per patient wishes who presented w/ AMS and MRI evidence of stroke. The concern was whether, given his history, the stroke occurred as a result of a cardioembolic event. Fortunately, there is no evidence of left ventricular thrombus by transthoracic echocardiogram. It remains unclear whether he may have been experiencing paroxysms of atrial fibrillation and had the stroke as result of thrombus in his left atrial appendage. Fortunately, there is been no evidence of any atrial fibrillation on telemetry. Naturally, other potential etiologies for the stroke exist, given his widespread evidence of atherosclerosis. Fortunately, his carotid ultrasound did not reveal any evidence of high-grade stenosis, mobile atherosclerotic plaque, etc. We discussed the possibility of placing a [employer] LINQ recorder or whether, with his again documented LV dysfunction, he would consider having an ICD placed which would protect him against a malignant dysrhythmia and would additionally allow us to determine whether he is having paroxysms of atrial fibrillation. This will be discussed with his machine setter sheet metal (Trenton Bianchi M.D.). We again discussed the possibility of performing a transesophageal echocardiogram, but this can be held off for now as there has been no evidence of atrial fibrillation. * Outpatient neurology follow-up. * Outpatient EP follow-up * Outpatient cardiology follow-up. Continue telemetry? No
--- NOTE | 2016-11-28 18:41 | ECHOCARDIOGRAM REPORT ---
NAMAN MUÑOZ Age: 76 : 1940 Gender: M Exam Date: 11/28/2016 16:10 Exam Location: [address] Ht (in): 72 Wt (lb): 175 BSA: 2.01 BP: 116 / 68 Ordering Physician: YARI SPEARS M Referring Physician: Trenton Mansfield MD Technologist: Olga Ochoa [facility] Room Number: 189-01 Indications: CARDIOMYOPATHY, R/O APICAL CLOT Rhythm: Sinus Technical Quality: Good FINDINGS Left Ventricle Limited echocardiographic study to help exclude apical thrombus with Definity contrast. Normal size left ventricle. Left ventricular hypertrophy. Moderately to severely reduced global left ventricular systolic function. No evidence of apical thrombus following administration of Definity contrast. Right Ventricle Right Atrium Left Atrium Mitral Valve Aortic Valve Tricuspid Valve Pulmonic Valve Pericardium Great Vessels CONCLUSIONS Limited echocardiographic study to help exclude apical thrombus with Definity contrast. No evidence of apical thrombus following administration of Definity contrast. Trenton Mansfield M.D. (Electronically Signed) Final Date: 28 November 2016 18:40 MEASUREMENTS (Male / Female) Normal Values
== END 2016-11-28 17:50 | DRG 65 ==
LOC: ERH 15:05 → ERHI 17:22 → 1NO 17:22 → ENRESERV 19:21 → 1NO 20:43 → ENPENDDIS 11-28 17:21 → 1NO 11-28 17:50
PROVIDERS: Emergency Medicine; Student in an Organized Health Care Education/Training Program; ADMIT Internal Medicine
DX: I63.10 Cerebral infarction due to embolism of unspecified precerebral artery (principal); I42.9 Cardiomyopathy, unspecified; A69.20 Lyme disease, unspecified; F03.90 Unspecified dementia, unspecified severity, without behavioral disturbance, psychotic disturbance, mood disturbance, and anxiety; J44.9 Chronic obstructive pulmonary disease, unspecified; I10 Essential (primary) hypertension; E78.5 Hyperlipidemia, unspecified; R26.9 Unspecified abnormalities of gait and mobility; F10.10 Alcohol abuse, uncomplicated; N40.0 Benign prostatic hyperplasia without lower urinary tract symptoms; F17.200 Nicotine dependence, unspecified, uncomplicated; I44.0 Atrioventricular block, first degree; I49.3 Ventricular premature depolarization
CPT/HCPCS: 1NSP; 70552; 70555; 86317; 86618; 87798; 36415; 70450; 70553; 71020; 82436; 93005; 93010; 93306; 93308; 93321; 97161-GP; 97166-GO; A9579; J1650; J3490; Q9957

== ENCOUNTER 2017-12-31 14:00 | Emergency (ER) | payer OTHER ==
[~2017-12-31] VITALS: Ht 180.3 cm; Wt 79.8 kg
[~2017-12-31 14:00] MED LIST: AGGRENOX 25 MG1 EACH PO; AMIODARONE HCL200 M1 PO; ASPIRIN EC81 M1 PO; AVODART0.5 M1 PO; CARVEDILOL6.25 M1 PO; DAILY VALUE1 EACH PO; DOXYCYCLINE HY100 M4 PO; DULOXETINE HCL30 MG PO; DULOXETINE HCL60 MG PO; FLUTICASONE PRO16 GM NASB; LISINOPRIL5 M1 PO; OMEPRAZOLE20 M2 PO; PRAVASTATIN SOD40 M2 PO
--- NOTE | 2017-12-31 14:30 | ED GENERAL ADULT ---
History of Present Illness General Chief Complaint: Dyspnea (COPD, CHF, Other) Stated Complaint: SOB Source: patient, family Exam Limitations: no limitations Vital Signs & Intake/Output Vital Signs & Intake/Output Vital Signs Date Time Temp Pulse Resp B/P B/P Pulse O2 O2 Flow FiO2 Mean Ox Delivery Rate 12/31 1442 98 Room Air Room Air 12/31 1422 81 18 126/81 99 Room Air Room Air 12/31 1411 96.3 82 20 122/75 96 Room Air Allergies Coded Allergies: Penicillins (UNKNOWN 11/25/16) Reconcile Medications Amiodarone (Cordarone) 200 MG TAB 0.5 TAB PO TuThSa HEART (Reported) Carvedilol 6.25 MG TABLET 1 TAB PO BID HEART/BP (Reported) Dipyridamole W/ Aspirin (Aggrenox 25 MG-200 MG Capsule) 25 MG-200 MG CPMP.12HR 1 CAP PO BID CVA Donepezil HCl (Aricept) 5 MG TABLET 1 TAB PO QPM DEMENTIA (Reported) Duloxetine HCl 60 MG CAPSULE.DR 1 CAP PO DAILY NERVE PAIN (Reported) Dutasteride (Avodart) 0.5 MG CAPSULE 1 CAP PO DAILY (Reported) Eplerenone 25 MG TABLET 1 TAB PO TuThSa UNKNOWN (Reported) Furosemide 40 MG TABLET 1 TAB PO TuThSa WATER RETENTION (Reported) Lisinopril 5 MG TABLET 1 TAB PO DAILY BP (Reported) Multivitamin (Daily Value) 1 EACH TABLET 1 TAB PO DAILY VITAMIN SUPPORT ( Reported) Omeprazole 20 MG CAPSULE.DR 1 CAP PO DAILY GI (Reported) Pravastatin Sodium 40 MG TABLET 1 TAB PO QPM CHOLESTEROL (Reported) Triage Note: PT TO ED C/O FEELING SOB AND LIGHTHEADED. H/O DEFIB TO LEFT CHEST. DENIES ANY C/P. PT APPEARS PALE AND SWEATY. STATES SOB IS WORSE WITH EXERTION. Triage Nurses Notes Reviewed? yes HPI: Patient is a 77-year-old male with past medical history of dysrhythmia status post AICD placement, but no prior history of CHF or ACS, who presents to the emergency department with his family today for dyspnea and diaphoresis. He denies any mikael chest pain. He has a tritrue device and reportedly the roofing sales representative called recently and told him something about "fluid build up," but his daughter who is a nurse understands that this is not something that is device companies are able to monitor, so they are unsure what the pathology was that they were calling about. Upon my initial encounter the gentleman is well- appearing and in no acute distress, but reports worsening of his dyspnea on exertion. Past History Travel History Traveled to [place] past 21 day No Medical History Any Pertinent Medical History? see below for history Neurological: NONE EENT: 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 No Review of Systems Review of Systems Constitutional: Reports: no symptoms. EENTM: Reports: no symptoms. Respiratory: Reports: see HPI, short of breath. Denies: cough, wheezing. Cardiovascular: Reports: no symptoms. GI: Reports: no symptoms. Genitourinary: Reports: no symptoms. Musculoskeletal: Reports: no symptoms. Skin: Reports: no symptoms. Neurological/Psychological: Reports: no symptoms. Hematologic/Endocrine: Reports: no symptoms. Physical Exam Physical Exam General Appearance: well developed/nourished, no apparent distress, alert, awake , comfortable Comments: HEENT: Inspection of the head reveals a normocephalic cranium with no signs of trauma. Ophtho: Extraocular muscles are intact and pupils are equal and reactive to light bilaterally with no afferent pupillary defect. The sclera are noninjected , and there is no obvious discharge. Neck: The trachea is midline, there is no obvious asymmetry or mass over the thyroid, and there is no midline cervical spine tenderness Respiratory: The lungs are clear and equal to auscultation bilaterally without wheezes, rales, or rhonchi. The patient exhibits no signs of labored breathing. Cardiac: Regular rhythm and non-tachycardic without appreciable murmurs on auscultation. No obvious JVD. Chest wall: Left anterior AICD pocket, well-appearing. GI: Examination of the abdomen reveals no significant focal tenderness in any of the four quadrants. There is negative Sampson's sign, negative McBurney's point tenderness, negative Berea sign, negative Goff-Amaya sign, and no signs of peritonitis whatsoever on percussion or deep palpation. The skin is intact with no sign of trauma or infection. : Deferred Neuro: The patient is oriented to person, place, time, and situation, with no obvious focal motor deficits. There were no sensory deficits, and the patient exhibit purposeful movement of all 4 extremities. Cranial nerves II through XII are intact, and gait is normal. Behavioral: Calm and cooperative Dermatologic: Dermatologic examination reveals no diffuse rashes or exanthems, no petechiae, no ecchymoses, and no other signs of erythema or infection. Core Measures ACS in differential dx? Yes CVA/TIA Diagnosis: No Sepsis Present: No Sepsis Focused Exam Completed? No Progress Differential Diagnoses I considered the following diagnoses in my evaluation of the patient: Pacemaker malfunction, dysrhythmia with appropriate pacemaker functioning, ACS, pneumonia, congestive heart failure, multiple other possible pathologies Plan of Care: Orders Procedure Date/time Status Add-on Test (ER Only) 12/31 1522 Active B-TYPE NATRIURETIC PEP (BNP) 12/31 1430 Active TROPONIN LEVEL 12/31 1429 Active MAGNESIUM 12/31 1429 Active COMPREHENSIVE METABOLIC PANEL 12/31 1429 Active CHOLESTEROL 12/31 1429 Active CBC WITHOUT DIFFERENTIAL 12/31 1429 Complete EKG 12/31 1406 Active Laboratory Tests 12/31/17 1430: Anion Gap 11, Estimated GFR > 60, BUN/Creatinine Ratio 20.0, Glucose 85, Calcium 9.1, Magnesium 2.0, Total Bilirubin 1.0, AST 17, ALT 26, Alkaline Phosphatase 47 , Troponin I < 0.01, [id number] Pept Pending, Total Protein 6.6, Albumin 3.9, Globulin 2.7, Albumin/Globulin Ratio 1.4, Cholesterol 206 H, CBC w Diff NO MAN DIFF REQ, RBC 4.69 L, MCV 98.1 H, MCH 33.0 H, MCHC 33.6, RDW 13.8, MPV 8.8, Gran % 54.3, Lymphocytes % 32.6, Monocytes % 10.1 H, Eosinophils % 2.3, Basophils % 0.7, Absolute Granulocytes 3.2, Absolute Lymphocytes 1.9, Absolute Monocytes 0.6, Absolute Eosinophils 0.1, Absolute Basophils 0 Initial ED EKG: Shows sinus rhythm with multiple PVCs, first-degree AV block, nonspecific intraventricular conduction delay, leftward axis, Q waves in inferior leads and anterior preseptal leads, nonspecific T-wave abnormalities, markedly changed from prior in regards to anteroseptal Q waves and ectopy. Prior EKG: changed Comments: Patient presents with nonspecific shortness of breath, particularly dyspnea on exertion. I considered CHF but the patient has no bilateral lower extremity edema, no pulmonary edema on chest x-ray, and a normal BNP. I considered acute coronary syndrome but his ECG is unremarkable and he has no chest pain whatsoever, with a negative troponin. I considered pulmonary embolus, however the patient has no hypoxia or tachycardia and I feel that this is overall unlikely. I offered hospitalization for cardiology consultation and echocardiography, but the patient has chosen to return home and will follow up with his PCP and hvac lead in the office. Departure Departure Time of Disposition: 1613 Disposition: HOME OR SELF CARE Condition: Stable Clinical Impression Primary Impression: Dyspnea on exertion Referrals: Dontrell Cespedes MD (PCP/Family) Additional Instructions: Please follow up with your primary doctor and hvac lead, and return to the ER if your symptoms worsen. Departure Forms: Customer Survey General Discharge Information Critical Care Note Critical Care Note Critical Care Time: non-applicable
[2017-12-31 14:55] LABS: ABSOLUTE BASOPHIL COUNT 0 /CUMM (0.0-0.2); ABSOLUTE EOSINOPHIL COUNT 0.1 /CUMM (0.0-0.7); ABSOLUTE GRANULOCYTE CT 3.2 /CUMM (1.4-6.5); ABSOLUTE LYMPH COUNT 1.9 /CUMM (1.2-3.4); ABSOLUTE MONOCYTE COUNT 0.6 /CUMM (0.10-0.60); BASOPHIL % 0.7 % (0.0-2.0); EOSINOPHIL % 2.3 % (0-5); GRANULOCYTE % 54.3 % (42.2-75.2); MEAN CORPUSCULAR HGB CONC 33.6 G/DL (33.0-37.0); MEAN CORPUSCULAR VOLUME 98.1 FL (80.0-94.0); MEAN PLATELET VOLUME 8.8 FL (7.4-10.4); PLATELET COUNT 146 /CUMM (130-400); RBC DISTRIBUTION WIDTH 13.8 % (11.5-14.5); RED BLOOD CELL CT 4.69 /CUMM (4.70-6.10); WHITE BLOOD CELL COUNT 5.8 /CUMM (4.8-10.8)
[2017-12-31] MEDS ORDERED: ARICEPT5 M1 PO (15:08)
[2017-12-31] MEDS ORDERED: FUROSEMIDE40 M1 PO (15:09)
[2017-12-31] MEDS ORDERED: EPLERENONE25 M1 PO (15:10)
--- NOTE | 2017-12-31 15:25 | RADIOLOGY REPORT ---
EXAMINATION: XR PORTABLE CHEST CLINICAL INFORMATION: Shortness of breath and weakness. COMPARISON: Chest radiograph 11/25/2016. TECHNIQUE: Portable frontal view of the chest was obtained. FINDINGS: Heart size is at the upper limits of normal. No gross pulmonary edema is seen. Previously noted small lung nodules and granulomas remain present and are unchanged. No significant pleural effusions are present. No consolidation is noted. IMPRESSION: No acute intrathoracic disease.
[2017-12-31 16:15] VITALS: BP 108/71
== END 2017-12-31 16:22 ==
LOC: ERH 14:00
PROVIDERS: Student in an Organized Health Care Education/Training Program
DX: R06.00 Dyspnea, unspecified (principal)
CPT/HCPCS: 71045; 93005; 93010